=== PATIENT | male | born 1970 | race Caucasian/White ===

== ENCOUNTER 2016-08-21 08:00 | Inpatient (IN) | payer OTHER ==
--- NOTE | ~2016-08-21 | PN ---
Unit #: [id number] #: [id number] Patient: SEVERINO TOTH [id number] [facility] [address] [place] [address] [id number] MR#: [id number] NAME: SEVERINO TOTH. ROOM: 84 Age: 45 Sex: M Admission Date: 08/21/2016 : 1970 Attending Physician: Geoffrey Lopez M.D. Admitting Physician: Geoffrey Lopez M.D. Primary Care Physician: Primary Care Physician Estela MORTENSEN PROGRESS NOTES DATE 08/23/2016 DISCUSSION The patient's detox continues uneventfully and is active within the therapeutic milieu. He is expressing interest in residential chemical dependence treatment but his lack of insurance at this point may preclude this as a possibility though [facility] may certainly be a possibility for the patient. Dictated by... Geoffrey Lopez M.D. CB/jeff TD: 08/24/2016 02:53 JOB #: [id number] [facility] PROGRESS NOTES Page 1 of 1 X Geoffrey Lopez MD PROGRESS NOTE
--- NOTE | ~2016-08-21 | PA ---
Unit #: [id number] #: [id number] Patient: SEVERINO TOTH [id number] [place] [address] [id number] MR#: [id number] NAME: SEVERINO TOTH. ROOM: 81 Age: 45 Sex: M Admission Date: 08/21/2016 : 1970 Date of Assessment: 08/22/2016 Attending Physician: Geoffrey Lopez M.D. Admitting Physician: Geoffrey Lopez M.D. Primary Care Physician: Primary Care Physician No PSYCHIATRIC ASSESSMENT IDENTIFYING INFORMATION The patient is a 45-year-old white male admitted to the [facility] with recurrent abuse of alcohol. CHIEF COMPLAINT None given. INFORMANT Patient, reliability is fair. HISTORY OF PRESENT ILLNESS The patient is a 45-year-old white male who is well known to this physician from multiple previous admissions to this facility. He is readmitted with a recent relapse of alcohol use. He was last admitted to this facility in April of this year. The patient had a blood alcohol of 161 on admission at [facility] and scored a 19 on his CIWA. The patient is currently denying suicidal or homicidal ideation or psychotic features. He reports that he wishes to go to "[facility]" upon his discharge. For more complete history of present illness, please refer to previously dictated notes. PAST PSYCHIATRIC HISTORY Reviewed, no changes. PAST MEDICAL HISTORY Reviewed, no changes. MEDICATIONS Metoprolol, lisinopril, and Lasix. ALLERGIES Penicillin. FAMILY HISTORY Reviewed, no changes. SOCIAL HISTORY Reviewed, no changes. MENTAL STATUS EXAMINATION Examination at this time reveals the patient to be an obese white male appearing stated age. She is in no apparent physical distress at the time of examination. He is awake, alert, and oriented in all spheres. His Unit #: [id number] #: [id number] Patient: SEVERINO TOTH mood is mildly dysphoric, his affect constricted. Speech is generally well coherent. There are no gross deficits in memory or cognition noted. Intelligence is judged to be in the average range based on fund of knowledge. The patient is cooperative throughout the interview. He is currently reporting no suicidal or homicidal ideation or psychotic features. Judgment and insight appear to be intact. ASSETS AND LIABILITIES The patient's assets are to be assessed. Liabilities: Lack of resources. DIAGNOSTIC IMPRESSION 1. Alcohol use disorder. 2. Hypertension. TREATMENT PLAN The patient remains hospitalized for safety and stabilization. Routine detoxification protocol for alcohol has been initiated. The patient will participate in appropriate order of milieu activities. I will ask her director of social services to see him regarding post-discharge treatment options. ESTIMATED LENGTH OF STAY 3 to 5 days. Dictated by... Geoffrey Lopez M.D. HAIR/yumiko TD: 08/22/2016 14:21 JOB #: [id number] PSYCHIATRIC ASSESSMENT Page 1 of 1 X Geoffrey Lopez MD X PSYCHIATRIC ASSESSMENT
--- NOTE | ~2016-08-21 | PN ---
Unit #: [id number] #: [id number] Patient: SEVERINO TOTH [id number] [facility] [address] [place] [address] [id number] MR#: [id number] NAME: SEVERINO TOTH. ROOM: 84 Age: 45 Sex: M Admission Date: 08/21/2016 : 1970 Attending Physician: Geoffrey Lopez M.D. Admitting Physician: Geoffrey Lopez M.D. Primary Care Physician: Primary Care Physician Estela DIEGO NOTES DATE 08/25/2016 DISCUSSION The patient is a bit brighter today and is reporting reduction in suicidal ideation. His detox is essentially complete, and we are looking at discharge within the next couple of days. The patient reporting an interest in going to [facility] Dictated by... Geoffrey Lopez M.D. CB/bzg TD: 08/25/2016 14:31 JOB #: [id number] [facility] PROGRESS NOTES Page 1 of 1 X Geoffrey Lopez MD PROGRESS NOTE
--- NOTE | ~2016-08-21 | DS ---
Unit #: [id number] #: [id number] Patient: SEVERINO TOTH [id number] [facility] [address] [place] [address] [id number] I MR#: [id number] NAME: SEVERINO TOTH. ROOM: 84 Age: 45 Sex: M Admission Date: 08/21/2016 : 1970 Discharge Date: Attending Physician: Geoffrey Lopez M.D. Primary Care Physician: Primary Care Physician No DISCHARGE SUMMARY REASON FOR ADMISSION The patient is a 45-year-old , white male, admitted to the [facility] unit for alcohol detox. HOSPITAL COURSE The patient was admitted to the [facility] unit and placed on routine detoxification protocol for alcohol. His stay in the hospital was an uneventful one. His detox went smoothly and he was restarted on previously prescribed antihypertensive medications. By 08/26/2016, the patient requested for discharge to take place in the following day, so that he would go to [facility]" and as per his request, discharge was ordered. FINAL DIAGNOSES Alcohol use disorder and hypertension. DISPOSITION ON DISCHARGE The patient is discharged on the following medications: Lasix 40 mg daily for hypertension, Zestril 10 mg daily for hypertension, and Lopressor 25 mg b.i.d. for hypertension. DISCHARGE INSTRUCTIONS No dietary or physical restrictions were placed on the patient at the time of discharge. FOLLOWUP Followup will take place through the auspices of community mental health resources. PROGNOSIS The patient's prognosis is considered fair. Dictated by... Geoffrey Lopez M.D. CB/katt TD: 08/26/2016 13:34 JOB #: [id number] Unit #: [id number] #: [id number] Patient: SEVERINO TOTH DISCHARGE SUMMARY Page 1 of 1 X Geoffrey Lopez MD X DISCHARGE SUMMARY
--- NOTE | ~2016-08-21 | PN ---
Unit #: [id number] #: [id number] Patient: SEVERINO TOTH [id number] [facility] [address] [place] [address] [id number] I MR#: [id number] NAME: SEVERINO TOTH. ROOM: 84 Age: 45 Sex: M Admission Date: 08/21/2016 : 1970 Attending Physician: Geoffrey Lopez M.D. Admitting Physician: Geoffrey Lopez M.D. Primary Care Physician: Primary Care Physician Estela MORTENSEN PROGRESS NOTES DATE 08/24/2016 DISCUSSION The patient offers no new complaints. His detox continues uneventfully. He has discussed his insurance situation with appropriate individuals regarding his insurance status this morning and is more active within the therapeutic milieu. Dictated by... Geoffrey Lopez M.D. CB/jeff TD: 08/24/2016 12:08 JOB #: [id number] [facility] PROGRESS NOTES Page 1 of 1 X Geoffrey Lopez MD X PROGRESS NOTE
--- NOTE | ~2016-08-21 | HP ---
Unit #: [id number] #: [id number] Patient: SEVERINO TOTH [id number] [place] [address] [id number] I MR#: [id number] NAME: SEVERINO TOTH. ROOM: P181 Age: 45 Sex: M Admission Date: 08/21/2016 : 1970 Attending Physician: Geoffrey Lopez M.D. Admitting Physician: Geoffrey Lopez M.D. Primary Care Physician: Primary Care Physician No HISTORY AND PHYSICAL HISTORY OF PRESENT ILLNESS Severino is a 45-year-old male admitted on 08/21/2016 for detox for alcohol. PAST MEDICAL HISTORY Hypertension. PAST SURGICAL HISTORY None. ALLERGIES Penicillin. SOCIAL HISTORY No tobacco or illegal drug use. Does report drinking 16 to 20 beers daily. He is currently and living alone. FAMILY HISTORY Noncontributory. REVIEW OF SYSTEMS CONSTITUTIONAL: No fever or chills. HEENT: Denies any sore throat, ear pain or runny nose. CARDIOVASCULAR: Denies chest pain, irregular heart rhythm or palpitations. CHEST: Denies shortness of breath or cough. No hemoptysis. GASTROINTESTINAL: Denies nausea, vomiting, diarrhea or chronic constipation. ENDOCRINE: Denies history of increased thirst or urination. No recent significant weight loss or gain. GENITOURINARY: Denies dysuria, frequency, or hematuria. SKIN: Denies any rashes. HEMATOLOGIC: Denies history of increased bleeding or bruising. MUSCULOSKELETAL: Denies any hot, swollen joints. No generalized muscle pain. NEUROLOGIC: Denies problems with vision or speech. No frequent, severe headaches. No numbness, tingling or weakness in any extremities. Denies loss of bladder or bowel control. CURRENT MEDICATIONS 1. Metoprolol. 2. Lisinopril. 3. Lasix. Unit #: [id number] #: [id number] Patient: SEVERINO TOTH PHYSICAL EXAMINATION GENERAL: Alert, oriented, in no acute distress. VITAL SIGNS: Blood pressure 152/108, heart rate 120. HEIGHT: 5 feet 7. WEIGHT: 213 pounds. SKIN: Warm and dry without rash or lesion. HEENT: Normocephalic. TMs not viewed. Oral and nasal passages clear. Conjunctivae clear. PERRLA. EOMs intact. NECK: Supple without lymphadenopathy or thyromegaly. HEART: Regular rate and rhythm without murmur. LUNGS: Clear. ABDOMEN: Soft, nontender, without masses or hepatosplenomegaly. : Not done. EXTREMITIES: No evidence of cyanosis, clubbing or edema. Moves all without focal deficit. NEUROLOGICAL: Grossly within normal limits. Cranial Nerves: II: Visual aguilar are intact. III, IV AND : Extraocular movements are intact. Pupils are equal, round and reactive to light. V: Facial sensation is grossly normal. VII: Facial movements and expression are normal. VIII: Auditory acuity grossly intact. IX, X: Uvula is midline. Phonation is normal. XI: Patient shrugs shoulders and turns head normally. XII: Tongue protrudes in the midline. Sensory and Motor Function: Sensory and motor sensation is grossly normal. Motor: moves all extremities well. Coordination: Gait is normal. Deep Tendon Reflexes: Intact. IMPRESSION 1. Psychiatric admission. 2. Hypertension. RECOMMENDATIONS PSYCHIATRIC: Per psychiatrist. MEDICAL: No contraindications to participate in facility's activities. MEDICAL PROGNOSIS Good. MEDICAL CONDITION Stable. Dictated by... Donna Du/shital TD: 08/22/2016 15:49 JOB #: [id number] Unit #: [id number] #: [id number] Patient: SEVERINO TOTH HISTORY AND PHYSICAL Page 1 of 1 X MARK PERSON APRN HISTORY AND PHYSICAL
[~2016-08-21 08:00] MED LIST: UNKNOWN MEDS
== END 2016-08-27 08:22 | disposition home or self-care (01) | DRG 897 ==
LOC: P1E 15:45
PROC: HZ2ZZZZ Detoxification Services for Substance Abuse Treatment (ICD-10-PCS; principal; 2016-08-22)
DX: F10.10 Alcohol abuse, uncomplicated (principal); I10 Essential (primary) hypertension; Z88.0 Allergy status to penicillin

== ENCOUNTER 2016-08-30 07:00 | Inpatient (IN) | payer OTHER ==
--- NOTE | ~2016-08-30 | HP ---
Unit #: [id number] #: [id number] Patient: SEVERINO TOTH [id number] [place] [address] [id number] MR#: [id number] NAME: SEVERINO TOTH ROOM: P211 Age: 45 Sex: M Admission Date: 08/30/2016 : 1970 Attending Physician: Geoffrey Lopez M.D. Admitting Physician: Geoffrey Lopez M.D. Primary Care Physician: Primary Care Physician No HISTORY AND PHYSICAL Severino is a 45-year-old male admitted on 08/30/[address] [place] [address] for detox from alcohol. He had a recent admission on 08/21/2016 for the same. I reviewed the history and physical from that admission and there are no changes. Dictated by... Donna Du/jeff TD: 08/31/2016 02:53 JOB #: [id number] HISTORY AND PHYSICAL Page 1 of 1 X MARK PERSON APRN X HISTORY AND PHYSICAL
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
== END 2016-09-01 09:25 | disposition home or self-care (01) | DRG 897 ==
LOC: P2S 09:57
PROC: HZ2ZZZZ Detoxification Services for Substance Abuse Treatment (ICD-10-PCS; principal; 2016-08-30)
DX: F10.10 Alcohol abuse, uncomplicated (principal); I10 Essential (primary) hypertension; Z88.0 Allergy status to penicillin

== ENCOUNTER 2016-09-06 04:00 | Inpatient (IN) | payer OTHER ==
--- NOTE | ~2016-09-06 | PN ---
Unit #: [id number] #: [id number] Patient: SEVERINO TOTH [id number] [facility] [address] [place] [address] [id number] MR#: [id number] NAME: SEVERINO TOTH ROOM: [facility] Age: 45 Sex: M Admission Date: 09/06/2016 : 1970 Attending Physician: Geoffrey Lopez M.D. Admitting Physician: Geoffrey Lopez M.D. Primary Care Physician: Primary Care Physician Estela MORTENSEN PROGRESS NOTES DATE 09/09/2016 DISCUSSION The patient is abed resting comfortably today. He is scheduled for discharge to [facility] [place] on Wednesday. Otherwise, his participation within the therapeutic milieu remains characteristically poor. Dictated by... Geoffrey Lopez M.D. CB/shital TD: 09/09/2016 21:54 JOB #: [id number] [facility] PROGRESS NOTES Page 1 of 1 X Geoffrey Lopez MD X PROGRESS NOTE
--- NOTE | ~2016-09-06 | HP ---
Unit #: [id number] #: [id number] Patient: SEVERINO TOTH [id number] [facility] [place] [address] [id number] MR#: [id number] NAME: SEVERINO TOTH. ROOM: P182 Age: 45 Sex: M Admission Date: 09/06/2016 : 1970 Attending Physician: Geoffrey Lopez M.D. Admitting Physician: Geoffrey Lopez M.D. Primary Care Physician: Primary Care Physician No HISTORY AND PHYSICAL HISTORY OF PRESENT ILLNESS Severino is a 45 year old admitted to [facility] because of his continued abuse of alcohol. He has had numerous admissions to this facility. He was just discharged from this facility after treatment for the same. The patient was seen and H and P dated 08/22/2016 was reviewed. This is current. No changes. Please see H and P dated 08/22/2016. Dictated by... Rose Wesley P.A.-C. for Alysia Lawson/jeff TD: 09/08/2016 00:17 JOB #: [id number] HISTORY AND PHYSICAL Page 1 of X Rose Wesley HISTORY AND PHYSICAL
--- NOTE | ~2016-09-06 | DS ---
Unit #: [id number] #: [id number] Patient: SEVERINO TOTH [id number] [facility] [address] [place] [address] [id number] MR#: [id number] NAME: SEVERINO TOTH. ROOM: [facility] Age: 46 Sex: M Admission Date: 09/06/2016 : 1970 Discharge Date: 09/10/2016 Attending Physician: Geoffrey Lopez M.D. Primary Care Physician: Primary Care Physician No DISCHARGE SUMMARY REASON FOR ADMISSION The patient is a 45-year-old white male, admitted to the [facility] unit after reporting positive suicidal ideation and ongoing alcohol use. HOSPITAL COURSE The patient was admitted to the [facility] unit and placed on suicide precautions. A routine detoxification protocol for alcohol was initiated and the patient was continued on his previously prescribed antihypertensive medications. Arrangements were made for the patient to go to "[facility]" on 09/11/2016; however, on 09/10/2016, the patient informed this physician that he had no intention of going to that facility, accordingly discharge was ordered to take place on 09/10/2016. FINAL DIAGNOSES Alcohol use disorder; hypertension. DISPOSITION ON DISCHARGE The patient is discharged on the following medications: Lasix 40 mg daily for hypertension, Zestril 10 mg daily for hypertension, and Lopressor 25 mg b.i.d. for hypertension. DISCHARGE INSTRUCTIONS No dietary or physical restrictions were placed upon the patient at the time of discharge. PROGNOSIS His prognosis is considered guarded at best. Dictated by... Geoffrey Lopez M.D. CB/katt TD: 09/10/2016 18:06 JOB #: [id number] Unit #: [id number] #: [id number] Patient: SEVERINO TOTH DISCHARGE SUMMARY Page 1 of 1 X Geoffrey Lopez MD X DISCHARGE SUMMARY
--- NOTE | ~2016-09-06 | PN ---
Unit #: [id number] #: [id number] Patient: SEVERINO TOTH [id number] [facility] [address] [place] [address] [id number] MR#: [id number] NAME: SEVERINO TOTH ROOM: [facility] Age: 45 Sex: M Admission Date: 09/06/2016 : 1970 Attending Physician: Geoffrey Lopez M.D. Admitting Physician: Geoffrey Lopez M.D. Primary Care Physician: Primary Care Physician Estela MORTENSEN PROGRESS NOTES DATE 09/08/2016 DISCUSSION The patient offers no new complaints today. We will be sending the patient to [facility]" on Wednesday. Dictated by... Geoffrey Lopez M.D. CB/jeff TD: 09/08/2016 20:50 JOB #: [id number] [facility] PROGRESS NOTES Page 1 of 1 X Geoffrey Lopez MD X PROGRESS NOTE
--- NOTE | ~2016-09-06 | PA ---
Unit #: [id number] #: [id number] Patient: SEVERINO TOTH [id number] [facility] [address] [place] [address] [id number] MR#: [id number] NAME: SEVERINO TOTH. ROOM: P182 Age: 45 Sex: M Admission Date: 09/06/2016 : 1970 Date of Assessment: 09/07/2016 Attending Physician: Geoffrey Lopez M.D. Admitting Physician: Geoffrey Lopez M.D. Primary Care Physician: Primary Care Physician No PSYCHIATRIC ASSESSMENT IDENTIFYING INFORMATION The patient is a 45-year-old white male just discharged from this facility on 09/01/2016. He returned intoxicated and voicing positive suicidal ideation. CHIEF COMPLAINT None given. INFORMANT The patient, patient's reliability is fair. HISTORY OF PRESENT ILLNESS The patient is a 45-year-old white male just discharged from this facility on 09/01/2016. The patient began drinking almost immediately thereafter now reports that "[place] ain't the place for me." He was reporting positive suicidal ideation when evaluated but today is denying suicidal ideation and expresses future orientation citing wish to go to "[facility]" in [place], [place]. He reports that he has been noncompliant with his prescribed antihypertensive medications and his blood pressure was not (1)____ quite elevated on admission. His blood alcohol on admission at [facility] was .259. For more complete history of present illness please refer to multiple previous dictated notes. PAST PSYCHIATRIC HISTORY Reviewed no changes. PAST MEDICAL HISTORY Reviewed no changes. MEDICATIONS 1. Lasix 2. Zestril 3. Lopressor ALLERGIES Penicillin FAMILY HISTORY Reviewed no changes. SOCIAL HISTORY Reviewed no changes. Unit #: [id number] #: [id number] Patient: SEVERINO TOTH MENTAL STATUS EXAMINATION At this time reveals the patient to be a well-developed, well-nourished white male, appearing his stated age. He is in no apparent physical distress at the time of examination. He is awake, alert, and oriented in all spheres. His mood is mildly dysphoric. His affect congruent. Speech is generally relevant and coherent. There are no gross deficits in memory or cognition noted. Intelligence is judged to be in the average range based on fund of knowledge. The patient is cooperative throughout the interview. He is currently denying suicidal or homicidal ideation or psychotic features. Judgment and insight appear to be intact. ASSETS AND LIABILITIES ASSETS: To be assessed. LIABILITIES: Poor compliance of treatment. DIAGNOSTIC IMPRESSION Alcohol use disorder, hypertension, treatment plan PSYCHIATRIC PLAN/TREATMENT GOALS The patient remains hospitalized for safety and stabilization. A routine detoxification protocol for alcohol has been initiated and his antihypertensive medications have been restarted. The patient has begun contact with "[facility]" and it is our hope that he will be able to be transferred there later this week for continued residential chemical dependence treatment. Dictated by... Geoffrey Lopez M.D. CB/jeff TD: 09/07/2016 23:16 JOB #: [id number] PSYCHIATRIC ASSESSMENT Page 1 of 1 X Geoffrey Lopze MD X PSYCHIATRIC ASSESSMENT
== END 2016-09-10 15:30 | DRG 897 ==
LOC: P1E 18:11
PROC: HZ2ZZZZ Detoxification Services for Substance Abuse Treatment (ICD-10-PCS; principal; 2016-09-06)
DX: F10.20 Alcohol dependence, uncomplicated (principal); I10 Essential (primary) hypertension

== ENCOUNTER 2016-09-26 14:00 | Inpatient (IN) | payer OTHER ==
--- NOTE | ~2016-09-26 | PN ---
Unit #: [id number] #: [id number] Patient: SEVERINO TOTH [id number] [facility] [address] [place] [address] [id number] MR#: [id number] NAME: SEVERINO TOTH ROOM: P210 Age: 46 Sex: M Admission Date: 09/26/2016 : 1970 Attending Physician: Geoffrey Lopez M.D. Admitting Physician: Geoffrey Lopez M.D. Primary Care Physician: Primary Care Physician Estela MORTENSEN PROGRESS NOTES DATE 09/30/2016 DISCUSSION The patient offers no new complaints today. He states that [facility] is probably a "no go" secondary to unavailability of beds. We will plan to discharge the patient tomorrow with completion of detox. Dictated by... Geoffrey Lopez M.D. CB/shital TD: 09/30/2016 16:04 JOB #: [id number] [facility] PROGRESS NOTES Page 1 of 1 X Geoffrey Lopez MD PROGRESS NOTE
--- NOTE | ~2016-09-26 | PA ---
Unit #: [id number] #: [id number] Patient: SEVERINO TABARES [id number] [facility] [address] [place] [address] [id number] I MR#: [id number] NAME: SEVERINO TABARES. ROOM: P182 Age: 46 Sex: M Admission Date: 09/26/2016 : 1970 Date of Assessment: Attending Physician: Geoffrey Lopez M.D. Admitting Physician: Geoffrey Lopez M.D. Primary Care Physician: Primary Care Physician No PSYCHIATRIC ASSESSMENT DATE OF SERVICE 09/26/2016. IDENTIFYING DATA Mr. Tabares is a 46-year-old, , white male, who is a resident of [place], [place] and was brought to the hospital by Crisis Intervention Team of the [facility] Police Department. CHIEF COMPLAINT "I'm fed up. I don't have a draft on this." HISTORY OF PRESENT ILLNESS Mr. Tabares is a 46-year-old white male with history of substance abuse and mood disorder, who was brought to the hospital by a local police as the patient had a blood alcohol level of 0.297 upon presentation and was seemed to be extremely depressed, anxious, and making suicidal statements, stating "I walk around the corner, I can get drunk and going to be mad at me and I've a serious problem and I need help." [facility] report indicated the patient was picked up after they received a call stating the patient is going to kill himself. The patient does endorse significant depression, anxiety, irritability, feelings of hopelessness and helplessness and suicidal ideations, and was seemed to be significant threat to himself, and as such, recommendation for inpatient level of care for safety and stabilization was made, and the patient was transferred to us. SUBSTANCE ABUSE HISTORY The patient reports extensive history of substance abuse and dependence, stating that he has been drinking since he was 20 years old and has been drinking 18 or more beers on a daily basis, and denies any other substance abuse. PAST PSYCHIATRIC HISTORY The patient has had a [facility] and [facility] addition to being at [facility], and has been diagnosed and treated for alcohol dependence and mood disorder, and review of the medical records indicate that he is noncompliant with treatment recommendations on an outpatient basis. PAST MEDICAL HISTORY Hypertension and congestive heart failure. Unit #: [id number] #: [id number] Patient: SEVERINO TABARES ALLERGIES No known medication allergies. CURRENT MEDICATIONS None. PERSONAL AND SOCIAL HISTORY A 45-year-old white male, who reports that he is single, unemployed, and essentially homeless and has poor social support system. MENTAL STATUS EXAMINATION Middle-aged white male, who was casually dressed with fair personal hygiene, appears to be in no acute distress or discomfort. He was awake and alert on interaction with intact orientation to time, place, and person. His mood was anxious and depressed with a congruent affect. His speech was slow and restricted in content. His thought processes were disorganized with some looseness of associations and flight of ideas. His insight and judgment remain significantly impaired. DIAGNOSTIC IMPRESSION Psychiatric: Alcohol dependence, moderate, in acute withdrawals; alcohol-induced mood disorder. Medical: Hypertension and congestive heart failure. Stressors: Moderate psychosocial stressors. TREATMENT PLAN 1. The patient has presented with history of substance abuse and mood disorder and has been decompensating and will need inpatient hospitalization for safety and stabilization. We will start him back on his home medications. We will adjust the medications and monitor response. 2. Supportive therapy was provided to the patient. ESTIMATED LENGTH OF STAY 5 to 7 days. ABILITY TO HELP SELF Limited. WILLINGNESS TO HELP SELF The patient appears to be willing to help self. STRENGTHS 1. Communicative. 2. Cooperative. PROBLEMS 1. Chronic dysphoric symptoms. 2. Chronic chemical dependency. 3. Poor social support system. DISCHARGE CRITERIA This will be contingent upon the patient's ability to go through detox without having any significant withdrawal symptoms as well as his ability to stay safe to himself, particularly after discharge from the hospital. Dictated by... Esther Virk M.D. Unit #: [id number] #: [id number] Patient: SEVERINO TABARES IAA/modl TD: 09/27/2016 15:24 JOB #: [id number] PSYCHIATRIC ASSESSMENT Page 1 of 1 X Esther Virk MD PSYCHIATRIC ASSESSMENT
--- NOTE | ~2016-09-26 | PN ---
Unit #: [id number] #: [id number] Patient: SEVERINO TABARES [id number] [facility] [address] [place] [address] [id number] MR#: [id number] NAME: SEVERINO TABARES. ROOM: 82 Age: 46 Sex: M Admission Date: 09/26/2016 : 1970 Attending Physician: Geoffrey Lopez M.D. Admitting Physician: Geoffrey Lopez M.D. Primary Care Physician: Primary Care Physician Estela DIEGO NOTES DATE September 27, 2016 DISCUSSION Mr. Tabares is a 46-year-old white male, who was seen today and chart was reviewed and the case was discussed with the staff. He was seen to be anxious, withdrawn, and seclusive to himself. Meanwhile, he has been cooperative with the treatment recommendations and he has been taking the medications and tolerating them fairly well. MENTAL STATUS EXAMINATION Middle-aged white male, who was casually dressed with fair personal hygiene and appears to be in no acute distress or discomfort. He was awake and alert with intact orientation. His mood is anxious with a congruent affect. He reports having suicidal ideations but denies any intent or plan. His insight and judgment remain significantly impaired. TREATMENT PLAN 1. We will continue him on his current medications and treatment protocol, and will monitor his response to the medications, and make further adjustments as needed. 2. We will continue to followup. Dictated by... Alysia Cameron/kings TD: 09/28/2016 07:17 JOB #: [id number] Unit #: [id number] #: [id number] Patient: SEVERINO TABARES [facility] PROGRESS NOTES Page 1 of 1 X Esther Virk MD X PROGRESS NOTE
--- NOTE | ~2016-09-26 | PN ---
Unit #: [id number] #: [id number] Patient: SEVERINO TOTH [id number] [facility] [address] [place] [address] [id number] I MR#: [id number] NAME: SEVERINO TOTH. ROOM: 82 Age: 46 Sex: M Admission Date: 09/26/2016 : 1970 Attending Physician: Geoffrey Lopez M.D. Admitting Physician: Geoffrey Lopez M.D. Primary Care Physician: Primary Care Physician Estela MORTENSEN PROGRESS NOTES DATE 09/29/2016 DISCUSSION Surprisingly, the patient is active within the therapeutic milieu and attending groups today. He states that he has been in contact with [facility] in [place], [place] and hopes to be accepted at that facility in the next couple of days. His detox continues uneventfully. Dictated by... Geoffrey Lopez M.D. CB/kings TD: 09/29/2016 13:54 JOB #: [id number] [facility] PROGRESS NOTES Page 1 of 1 X Geoffrey Lopez MD PROGRESS NOTE
--- NOTE | ~2016-09-26 | HP ---
Unit #: [id number] #: [id number] Patient: SEVERINO TOTH [id number] [place] [address] [id number] I MR#: [id number] NAME: SEVERINO TOTH. ROOM: [facility] Age: 46 Sex: M Admission Date: 09/26/2016 : 1970 Attending Physician: Geoffrey Lopez M.D. Admitting Physician: Geoffrey Lopez M.D. Primary Care Physician: Primary Care Physician No HISTORY AND PHYSICAL HISTORY OF PRESENT ILLNESS The patient is a 46-year-old male who states he is here because he is drinking alcohol to excess. PAST MEDICAL HISTORY Significant for hypertension. PAST SURGICAL HISTORY None. SOCIAL HISTORY Positive for smoking and alcohol. ALLERGIES None. FAMILY HISTORY Noncontributory. REVIEW OF SYSTEMS CONSTITUTIONAL: No fever or chills. HEENT: Denies any sore throat, ear pain or runny nose. CARDIOVASCULAR: Denies chest pain, irregular heart rhythm or palpitations. CHEST: Denies shortness of breath or cough. No hemoptysis. GASTROINTESTINAL: Denies nausea, vomiting, diarrhea or chronic constipation. ENDOCRINE: Denies history of increased thirst or urination. No recent significant weight loss or gain. GENITOURINARY: Denies dysuria, frequency, or hematuria. SKIN: Denies any rashes. HEMATOLOGIC: Denies history of increased bleeding or bruising. MUSCULOSKELETAL: Denies any hot, swollen joints. No generalized muscle pain. NEUROLOGIC: Denies problems with vision or speech. No frequent, severe headaches. No numbness, tingling or weakness in any extremities. Denies loss of bladder or bowel control. CURRENT MEDICATIONS None. PHYSICAL EXAMINATION Unit #: [id number] #: [id number] Patient: SEVERINO TOTH GENERAL: Alert, oriented in no acute distress. VITAL SIGNS: Heart rate 93, respirations 16, blood pressure 143/101. HEIGHT: 5 feet 8 inches WEIGHT: 220 pounds SKIN: Warm and dry without rash or lesion. Tattoo bilateral upper arms. Trace right ankle swelling. HEENT: Normocephalic. TMs not viewed. Oral and nasal passages clear. Conjunctivae clear. PERRLA. EOMs intact. NECK: Supple without lymphadenopathy or thyromegaly. HEART: Regular rate and rhythm without murmur. LUNGS: Clear. ABDOMEN: Soft, nontender, without masses or hepatosplenomegaly. : Not done. EXTREMITIES: No evidence of cyanosis, clubbing or edema. Moves all without focal deficit. NEUROLOGICAL: Grossly within normal limits. Cranial Nerves: II: Visual aguilar are intact. III, IV AND : Extraocular movements are intact. Pupils are equal, round and reactive to light. V: Facial sensation is grossly normal. VII: Facial movements and expression are normal. VIII: Auditory acuity grossly intact. IX, X: Uvula is midline. Phonation is normal. XI: Patient shrugs shoulders and turns head normally. XII: Tongue protrudes in the midline. Sensory and Motor Function: Sensory and motor sensation is grossly normal. Motor: moves all extremities well. Coordination: Gait is normal. Deep Tendon Reflexes: Intact. IMPRESSION Psychiatric admission. RECOMMENDATIONS Psychiatric, per psychiatrist. MEDICAL: I see no contraindications to participating in facility's activities. MEDICAL PROGNOSIS Good. Dictated by... Donna Rosas/jeff TD: 09/28/2016 02:29 JOB #: [id number] Unit #: [id number] #: [id number] Patient: SEVERINO TOTH HISTORY AND PHYSICAL Page 1 of 1 X Gali James APR X HISTORY AND PHYSICAL
--- NOTE | ~2016-09-26 | PN ---
Unit #: [id number] #: [id number] Patient: SEVERINO TOTH [id number] [facility] [address] [place] [address] [id number] I MR#: [id number] NAME: SEVERINO TOTH ROOM: [facility] Age: 46 Sex: M Admission Date: 09/26/2016 : 1970 Attending Physician: Geoffrey Lopez M.D. Admitting Physician: Geoffrey Lopez M.D. Primary Care Physician: Primary Care Physician Estela MORTENSEN PROGRESS NOTES DATE 09/28/2016 DISCUSSION The patient exhibits little in the way of signs or symptoms of withdrawn, he states that he is hoping to go to "[facility]" upon his discharge from this facility and offers no other complaints. Dictated by... Geoffrey Lopez M.D. CB/kings TD: 09/28/2016 12:56 JOB #: [id number] [facility] PROGRESS NOTES Page 1 of 1 X Geoffrey Lopez MD X PROGRESS NOTE
--- NOTE | ~2016-09-26 | DS ---
Unit #: [id number] #: [id number] Patient: SEVERINO TOTH [id number] [facility] [address] [place] [address] [id number] MR#: [id number] NAME: SEVERINO TOTH. ROOM: [facility] Age: 46 Sex: M Admission Date: 09/26/2016 : 1970 Discharge Date: 10/01/2016 Attending Physician: Geoffrey Lopez M.D. Primary Care Physician: Primary Care Physician No DISCHARGE SUMMARY REASON FOR ADMISSION The patient is a 46-year-old white male admitted to the [address] [place] [address] for alcohol detox. HOSPITAL COURSE The patient is admitted to the [address] [place] [address] and placed on a routine detoxification protocol for alcohol. His home antihypertensive medications were continued. The patient made efforts to obtain placement at [facility] but was unsuccessfully in doing so. By 10/01 his detox was complete and discharge was ordered. DISCHARGE DIAGNOSES 1. Alcohol use disorder. 2. Hypertension. DISPOSITION ON DISCHARGE The patient is discharged on the following medications: 1. Lopressor 25 mg twice daily for hypertension. 2. Zestril 10 mg once daily for hypertension. 3. Lasix 40 mg daily for hypertension. DIET AND ACTIVITY No dietary or physical restrictions were placed upon the patient at the time of discharge. Followup to take place through the auspices of community mental resources. The patient's prognosis remains guarded. Dictated by... Geoffrey Lopez M.D. CB/jeff TD: 10/02/2016 00:05 JOB #: [id number] Unit #: [id number] #: [id number] Patient: SEVERINO TOTH DISCHARGE SUMMARY Page 1 of 1 X Geoffrey Lopez MD X DISCHARGE SUMMARY
--- NOTE | ~2016-09-26 | PA ---
Unit #: [id number] #: [id number] Patient: SEVERINO TOTH [id number] [facility] [address] [place] [address] [id number] I MR#: [id number] NAME: SEVERINO TOTH. ROOM: [facility] Age: 46 Sex: M Admission Date: 09/26/2016 : 1970 Date of Assessment: 09/27/2016 Attending Physician: Geoffrey Lopez M.D. Admitting Physician: Geoffrey Lopez M.D. Primary Care Physician: Primary Care Physician No PSYCHIATRIC ASSESSMENT IDENTIFYING INFORMATION The patient is a 46-year-old white male admitted to the [facility] unit after he presented to this facility reporting ongoing suicidal ideation and abuse of alcohol. CHIEF COMPLAINT None given. INFORMANT The patient, patient's reliability is fair. HISTORY OF PRESENT ILLNESS The patient is a 46-year-old white male brought to this facility by [facility] yesterday. The patient was reporting ongoing abuse of alcohol and because of this was reporting positive thoughts of suicide without specific plan. The patient is a "frequent " at this facility last discharged on 09/10/2016. At that time the patient stated that he was going to go to "[facility]" but began drinking almost immediately thereafter. He denies suicidal ideation when seen today and is reporting a wish to go to "[facility]" upon his discharge from this facility. PAST PSYCHIATRIC HISTORY As above. PAST MEDICAL HISTORY Reviewed no changes. MEDICATIONS The patient is on several antihypertensive medications but these do not appear to be have been restarted. ALLERGIES None reported. FAMILY HISTORY Reviewed no changes. SOCIAL HISTORY Reviewed no changes. MENTAL STATUS EXAMINATION At this time reveals the patient to be a (2) male appearing his stated age. He is in no apparent physical distress at the time of Unit #: [id number] #: [id number] Patient: SEVERINO TOTH examination. He is awake, alert, and oriented in all spheres. His mood is mildly dysphoric. His affect is constricted. Speech is generally relevant and coherent. There are no gross deficits in memory or cognition noted. Intelligence is judged to be in the average range based on fund of knowledge. The patient is cooperative throughout the interview. He is currently denying suicidal or homicidal ideation and denies any psychotic symptoms. His judgment and insight appear to be at baseline. ASSETS AND LIABILITIES ASSETS: To be assessed. LIABILITIES: Lack of resources. DIAGNOSTIC IMPRESSION Alcohol use disorder, hypertension. PSYCHIATRIC PLAN/TREATMENT GOALS The patient remains hospitalized for safety and stabilization. A routine detoxification protocol for alcohol has been initiated. The patient will be firmly confronted today regarding his history of poor compliance with treatment within the therapeutic milieu. ESTIMATED LENGTH OF STAY IN THE HOSPITAL Two to three days. Dictated by... Geoffrey Lopez M.D. HAIR/jeff TD: 09/27/2016 23:24 JOB #: [id number] PSYCHIATRIC ASSESSMENT Page 1 of 1 X Geoffrey Lopez MD X PSYCHIATRIC ASSESSMENT
[2016-09-28 12:25] LABS: BASOPHIL% 0.7 % (0-2.5); EOSINOPHIL# 0.1 X10e3 (0-0.7); HEMATOCRIT 39.9 % (38.0-50.0); HEMOGLOBIN 13.1 gm/dL (13.0-16.0); LYMPHOCYTE# 1.1 X10e3 (1.0-3.5); LYMPHOCYTE% 20.1 % (17.0-45.0); MEAN CELL VOLUME 91.6 FL (83-96); MEAN CORPUSCULAR HEMOGLOBIN 30.1 PG (28-34); MEAN CORPUSCULAR HGB CONC 32.8 g/dL (30-36); MEAN PLATELET VOLUME 7.9 FL (6.5-11.5); MONOCYTE# 0.4 X10e3 (0-1.0); MONOCYTE% 7.4 % (3.0-12.0); NEUTROPHIL# 3.8 X10e3 (1.5-7.1); NEUTROPHIL% 69.8 % (40-75); PLATELET COUNT 185 X10e3 (140-420); RED BLOOD COUNT 4.35 X10e (3.90-5.60); RED CELL DISTRIBUTION WIDTH 15.6 % (11.0-15.5); WHITE BLOOD COUNT 5.5 X10e3 (4.0-10.5)
[2016-09-28 12:26] LABS: DIFF IND NO
[2016-09-28 12:33] LABS: BILIRUBIN,TOTAL 0.7 mg/dL (0.2-2.0); BUN/CREATININE RATIO 22.85; CALCIUM SERUM 8.4 mg/dL (8.4-10.2); CREATININE SERUM 0.7 mg/dL (0.6-1.4); POTASSIUM 3.8 mmol/L (3.5-5.1); PROTEIN TOTAL SERUM 7.2 g/dL (6.0-8.3)
== END 2016-10-01 14:35 | disposition home or self-care (01) | DRG 897 ==
LOC: P1E 14:23 → POF 09-29 22:12 → P2S 09-29 22:13
PROVIDERS: Specialist
PROC: HZ2ZZZZ Detoxification Services for Substance Abuse Treatment (ICD-10-PCS; principal; 2016-09-26)
DX: F10.239 Alcohol dependence with withdrawal, unspecified (principal); I50.9 Heart failure, unspecified; F17.210 Nicotine dependence, cigarettes, uncomplicated; F10.24 Alcohol dependence with alcohol-induced mood disorder
CPT/HCPCS: 80053; 85025; 86592

== ENCOUNTER 2016-10-06 04:00 | Inpatient (IN) | payer OTHER ==
--- NOTE | ~2016-10-06 | PN ---
Unit #: [id number] #: [id number] Patient: SEVERINO TOTH [id number] [facility] [address] [place] [address] [id number] MR#: [id number] NAME: SEVERINO TOTH. ROOM: 80 Age: 46 Sex: M Admission Date: 10/06/2016 : 1970 Attending Physician: Geoffrey Lopez M.D. Admitting Physician: Geoffrey Lopez M.D. Primary Care Physician: Generic Doctor Not In System [facility] PROGRESS NOTES DATE 10/07/2016 DISCUSSION Patients exhibits little in the way or signs or symptoms of withdrawal today. He again is claiming to be seeking admission to a residential treatment facility however this physician has strong doubts whether the patient has any intent on complying with this given his previous behavior at this facility. Dictated by... Geoffrey Lopez M.D. CB/jeff TD: 10/07/2016 21:48 JOB #: [id number] [facility] PROGRESS NOTES Page 1 of 1 X Geoffrey Lopez MD PROGRESS NOTE
--- NOTE | ~2016-10-06 | PA ---
Unit #: [id number] #: [id number] Patient: SEVERINO TOTH [id number] [facility] [address] [place] [address] [id number] I MR#: [id number] NAME: SEVERINO TOTH. ROOM: 80 Age: 46 Sex: M Admission Date: 10/06/2016 : 1970 Date of Assessment: 10/06/2016 Attending Physician: Geoffrey Lopez M.D. Admitting Physician: Geoffrey Lopez M.D. Primary Care Physician: Generic Doctor Not In System PSYCHIATRIC ASSESSMENT IDENTIFYING INFORMATION The patient is a 46-year-old white male admitted to the [facility] unit after presenting to [facility] claiming to be suicidal. CHIEF COMPLAINT None given. INFORMANT Chart, the patient could not be aroused for interview. HISTORY OF PRESENT ILLNESS The patient is a 46-year-old white male well known to this physician. He was just discharged from this facility on 10/01/2016 and began drinking immediately upon his discharge. He presented to [facility] claiming to be "fed up" and reporting positive suicidal ideation. His blood alcohol on admission was 0.293. When seen today the patient is resting comfortably and cannot be aroused for interview For more complete history of present illness please refer to multiple previous dictated notes. PAST PSYCHIATRIC HISTORY Reviewed, no changes. PAST MEDICAL HISTORY Reviewed, no changes. MEDICATIONS 1. Lasix 2. Lisinopril 3. Lopressor ALLERGIES Penicillin FAMILY HISTORY Reviewed, no changes. SOCIAL HISTORY Reviewed, no changes. MENTAL STATUS EXAMINATION At this time reveals the patient to be a soundly sleeping obese white male appearing his stated age. He is in no apparent physical distress at the time of examination. As noted previously the patient cannot be aroused Unit #: [id number] #: [id number] Patient: SEVERINO TOTH for further interview. ASSETS AND LIABILITIES ASSETS: To be assessed. LIABILITIES: Lack of resources, ongoing substance use. DIAGNOSTIC IMPRESSION Alcohol use disorder, hypertension. PSYCHIATRIC PLAN/TREATMENT GOALS The patient remains hospitalized for safety and stabilization. A routine detoxification protocol for alcohol has been initiated and the antihypertensive medications had been restarted. ESTIMATED LENGTH OF STAY IN THE HOSPITAL Three to five days. Dictated by... Geoffrey Lopez M.D. HAIR/jeff TD: 10/07/2016 03:55 JOB #: [id number] PSYCHIATRIC ASSESSMENT Page 1 of 1 X Geoffrey Lopez MD PSYCHIATRIC ASSESSMENT
--- NOTE | ~2016-10-06 | HP ---
Unit #: [id number] #: [id number] Patient: SEVERINO TOTH [id number] [place] [address] [id number] MR#: [id number] NAME: SEVERINO TOTH. ROOM: P180 Age: 46 Sex: M Admission Date: 10/06/2016 : 1970 Attending Physician: Geoffrey Lopez M.D. Admitting Physician: Geoffrey Lopez M.D. Primary Care Physician: Generic Doctor Not In System HISTORY AND PHYSICAL HISTORY OF PRESENT ILLNESS Severino is a 46 year old admitted to [facility] because of his continued abuse of alcohol. He has had numerous admissions to this facility. He was just discharged from this facility after treatment for the same. The patient was seen and H and P dated 09/27/2016 was reviewed. This is current. No changes. Please see H and P dated 09/27/2016. Dictated by... Rose Wesley P.A.-C. for Alysia Lawson/jeff TD: 10/07/2016 05:03 JOB #: [id number] HISTORY AND PHYSICAL Page 1 of X Rose Wesley HISTORY AND PHYSICAL
--- NOTE | ~2016-10-06 | PN ---
Unit #: [id number] #: [id number] Patient: SEVERINO TOTH [id number] [facility] [address] [place] [address] [id number] MR#: [id number] NAME: SEVERINO TOTH. ROOM: P180 Age: 46 Sex: M Admission Date: 10/06/2016 : 1970 Attending Physician: Geoffrey Lopez M.D. Admitting Physician: Geoffrey Lopez M.D. Primary Care Physician: Britton Doctor Not In System [facility] PROGRESS NOTES DATE 10/08/2016 DISCUSSION The patient is active within the therapeutic milieu and his detox continues uneventfully. Unfortunately, we have learned that the patient's insurance may terminate on 10/26/2016 and if it does, he will not be able to go to a residential treatment facility. We will work on this but I have told the patient in any case to expect a.m. discharge. Dictated by... Geoffrey Lopez M.D. HAIR/shital TD: 10/08/2016 15:55 JOB #: [id number] [facility] PROGRESS NOTES Page 1 of 1 X Geoffrey Lopez MD X PROGRESS NOTE
== END 2016-10-09 09:15 | DRG 897 ==
LOC: P1E 04:00
PROC: HZ2ZZZZ Detoxification Services for Substance Abuse Treatment (ICD-10-PCS; principal; 2016-10-06)
DX: F10.20 Alcohol dependence, uncomplicated (principal); I10 Essential (primary) hypertension; F17.210 Nicotine dependence, cigarettes, uncomplicated

== ENCOUNTER 2016-11-13 01:00 | Inpatient (IN) | payer OTHER ==
[~2016-11-13] VITALS: Ht 170.2 cm; Wt 102.1 kg
--- NOTE | ~2016-11-13 | PN ---
Unit #: [id number] #: [id number] Patient: SEVERINO TOTH [id number] [facility] [address] [place] [address] [id number] I MR#: [id number] NAME: SEVERINO TOTH. ROOM: 76 Age: 46 Sex: M Admission Date: 11/13/2016 : 1970 Attending Physician: Geoffrey Lopez M.D. Admitting Physician: Geoffrey Lopez M.D. Primary Care Physician: Generic Doctor Not In System [facility] PROGRESS NOTES DATE 11/15/2016 DISCUSSION The patient is in somewhat brighter spirits today and is more active within the therapeutic milieu. [facility] is [facility]. Dictated by... Geoffrey Lopez M.D. CB/jeff TD: 11/15/2016 23:42 JOB #: [id number] [facility] PROGRESS NOTES Page 1 of 1 X Geoffrey Lopez MD X PROGRESS NOTE
--- NOTE | ~2016-11-13 | HP ---
Unit #: [id number] #: [id number] Patient: SEVERINO TOTH [id number] [place] [address] [id number] MR#: [id number] NAME: SEVERINO TOTH. ROOM: P176 Age: 46 Sex: M Admission Date: 11/13/2016 : 1970 Attending Physician: Geoffrey Lopez M.D. Admitting Physician: Geoffrey Lopez M.D. Primary Care Physician: Britton Doctor Not In System HISTORY AND PHYSICAL HISTORY OF PRESENT ILLNESS Sveerino is a 46 year old admitted to [facility] because of his continued abuse of alcohol. PAST MEDICAL HISTORY 1. Long history of alcohol abuse. 2. High blood pressure. 3. Obesity. PAST SURGICAL HISTORY Nothing reported. ALLERGIES No known drug allergies. SOCIAL HISTORY He does not smoke. Drinks at least a case of beer on a daily basis. Denies illicit drug use. FAMILY HISTORY Medically noncontributory. REVIEW OF SYSTEMS CONSTITUTIONAL: No fever or chills. HEENT: Denies any sore throat, ear pain or runny nose. CARDIOVASCULAR: Denies chest pain, irregular heart rhythm or palpitations. CHEST: Denies shortness of breath or cough. No hemoptysis. GASTROINTESTINAL: Denies nausea, vomiting, diarrhea or chronic constipation. ENDOCRINE: Denies history of increased thirst or urination. No recent significant weight loss or gain. GENITOURINARY: Denies dysuria, frequency, or hematuria. SKIN: Denies any rashes. HEMATOLOGIC: Denies history of increased bleeding or bruising. MUSCULOSKELETAL: Denies any hot, swollen joints. No generalized muscle pain. NEUROLOGIC: Denies problems with vision or speech. No frequent, severe headaches. No numbness, tingling or weakness in any extremities. Denies loss of bladder or bowel control. CURRENT MEDICATIONS 1. Detox protocol. 2. Lopressor 25 mg daily. Unit #: [id number] #: [id number] Patient: SEVERINO TOHT 3. Zestril 10 mg daily. 4. Lasix 40 mg daily. PHYSICAL EXAMINATION GENERAL: Alert, obese, in no apparent distress. VITAL SIGNS: Blood pressure 144/88, heart rate 80, respirations 16, temperature 98.6. WEIGHT: 225. HEIGHT: 5 feet 7 inches. SKIN: Warm and dry without rash or lesion. HEENT: Normocephalic. TMs not viewed. Oral and nasal passages clear. Conjunctivae clear. PERRLA. EOMs intact. NECK: Supple without lymphadenopathy or thyromegaly. HEART: Regular rate and rhythm without murmur. LUNGS: Clear. ABDOMEN: Soft, nontender. : Not done. EXTREMITIES: No evidence of cyanosis, clubbing or edema. Moves all without focal deficit. NEUROLOGICAL: Grossly within normal limits. Cranial Nerves: II: Visual aguilar are intact. III, IV AND : Extraocular movements are intact. Pupils are equal, round and reactive to light. V: Facial sensation is grossly normal. VII: Facial movements and expression are normal. VIII: Auditory acuity grossly intact. IX, X: Uvula is midline. Phonation is normal. XI: Patient shrugs shoulders and turns head normally. XII: Tongue protrudes in the midline. Sensory and Motor Function: Sensory and motor sensation is grossly normal. Motor: moves all extremities well. Coordination: Gait is normal. Deep Tendon Reflexes: Intact. IMPRESSION Psychiatric admission. RECOMMENDATIONS PSYCHIATRIC: Per psychiatrist. MEDICAL: See no contraindication to participate in facility's activities. MEDICAL PROGNOSIS Good. MEDICAL CONDITION Stable. Dictated by... Rose Wesley PRosalesARosales-Jonelle. for Alysia Lawson/shital TD: 11/14/2016 18:40 JOB #: [id number] Unit #: [id number] #: [id number] Patient: SEVERINO TOTH HISTORY AND PHYSICAL Page 1 of 1 X Rose Wesley HISTORY AND PHYSICAL
--- NOTE | ~2016-11-13 | DS ---
Unit #: [id number] #: [id number] Patient: SEVERINO TOTH [id number] [facility] [address] [place] [address] [id number] MR#: [id number] NAME: SEVERINO TOTH. ROOM: [facility] Age: 46 Sex: M Admission Date: 11/13/2016 : 1970 Discharge Date: 11/17/2016 Attending Physician: Geoffrey Lopez M.D. Primary Care Physician: Generic Doctor Not In System DISCHARGE SUMMARY ANTICIPATED DATE OF DISCHARGE 11/17/2016. HOSPITAL COURSE The patient was admitted to the [facility] unit and continued on previously prescribed antihypertensive medications. His stay in the hospital was a brief and uneventful one. His behavior was somewhat more appropriate during this stay in the hospital and he did participate more actively. By 11/17/2016, the patient reported a wish to [facility]. Discharge was ordered. FINAL DIAGNOSES Alcohol use disorder, and hypertension. DISPOSITION ON DISCHARGE The patient is discharged on the following medications; Lasix 40 mg daily for hypertension, Zestril 10 mg daily for hypertension, Lopressor 25 mg daily for hypertension. DISCHARGE INSTRUCTIONS No dietary or physical restrictions were placed on the patient at the time of discharge. FOLLOWUP Followup will take place through the auspices of "community mental health resources." PROGNOSIS The patient's prognosis remains guarded. Dictated by... Geoffrey Lopez M.D. CB/katt TD: 11/17/2016 02:49 JOB #: [id number] Unit #: [id number] #: [id number] Patient: SEVERINO TOTH DISCHARGE SUMMARY Page 1 of 1 X Geoffrey Lopez MD X DISCHARGE SUMMARY
--- NOTE | ~2016-11-13 | PA ---
Unit #: [id number] #: [id number] Patient: SEVERINO TOHT [id number] [facility] [address] [place] [address] [id number] I MR#: [id number] NAME: SEVERINO TOTH. ROOM: P176 Age: 46 Sex: M Admission Date: 11/13/2016 : 1970 Date of Assessment: 11/13/2016 Attending Physician: Geoffrey Lopez M.D. Admitting Physician: Geoffrey Lopez M.D. Primary Care Physician: Generic Doctor Not In System PSYCHIATRIC ASSESSMENT IDENTIFYING INFORMATION The patient is a 46-year-old white male well-known to this physician from multiple previous admissions to this facility. He is readmitted after presenting to [facility] reporting recent relapse of alcohol use and suicidal ideation. INFORMANT(S) Patient and chart. RELIABILITY Fair. CHIEF COMPLAINT None given. HISTORY OF PRESENT ILLNESS The patient is a 46-year-old white male well-known to this physician from multiple previous admissions to this facility. He is readmitted after presenting to [facility] reporting positive suicidal ideation. The patient is homeless and has been drinking heavily. His blood alcohol on admission at [facility] was .294. The patient continues to endorse positive suicidal ideation and hopelessness when seen today. For a more complete history of present illness, please refer to previous dictated notes. PAST PSYCHIATRIC HISTORY Reviewed, no changes. FAMILY HISTORY/SOCIAL HISTORY Reviewed, no changes. MEDICAL HISTORY Reviewed, no changes. MEDICATION HISTORY The patient is on several antihypertensive medications including Lopressor, Zestril and Lasix. ALLERGIES None reported. MENTAL STATUS EXAM At this time, reveals the patient to be an obese, disheveled white male Unit #: [id number] #: [id number] Patient: SEVERINO TOTH appearing his stated age. He is in no apparent physical distress at the time of examination. He is awake, alert, oriented in all spheres. His mood is mildly dysphoric. His affect congruent. Speech is generally relevant and coherent. There are no gross deficits in memory or cognition noted. Intelligence is judged to be in the average range based on fund of knowledge. The patient is cooperative throughout the interview. He is currently endorsing positive suicidal ideation. He denies homicidal ideation. He denies any psychotic symptoms. His judgement and insight appear to be intact. ASSETS AND LIABILITIES Patient's assets, motivation for change. Liabilities, lack of resources. DIAGNOSTIC IMPRESSION 1. Alcohol use disorder. 2. Hypertension. PSYCHIATRIC PLAN/TREATMENT GOALS The patient remains hospitalized for safety and stabilization. Routine detoxification protocol for alcohol will be initiated and suicide precautions have been put in place. The patient will participate in appropriate paige and milieu activities. ESTIMATED LENGTH OF STAY Three to four days. He is sternly warned today regarding expectations of courteous treatment of staff and peers and I have informed the patient that if at any point I learn that he has been less than optimally courteous to staff, he will be immediately discharged. Dictated by... Geoffrey Lopez M.D. HAIR/shital TD: 11/13/2016 15:19 JOB #: [id number] PSYCHIATRIC ASSESSMENT Page 1 of 1 X Geoffrey Lopez MD X PSYCHIATRIC ASSESSMENT
--- NOTE | ~2016-11-13 | PN ---
Unit #: [id number] #: [id number] Patient: SEVERINO TOTH [id number] [facility] [address] [place] [address] [id number] I MR#: [id number] NAME: SEVERINO TOTH ROOM: 76 Age: 46 Sex: M Admission Date: 11/13/2016 : 1970 Attending Physician: Geoffrey Lopez M.D. Admitting Physician: Geoffrey Lopez M.D. Primary Care Physician: Generic Doctor Not In System [facility] PROGRESS NOTES DATE 11/14/2016 DISCUSSION The patient is abed resting comfortably today. Staff reports no management issues and no episodes of abusive or otherwise inappropriate behavior. Dictated by... Geoffrey Lopez M.D. CB/shital TD: 11/14/2016 14:08 JOB #: [id number] [facility] PROGRESS NOTES Page 1 of 1 X Geoffrey Lopez MD X PROGRESS NOTE
[2016-11-15 11:22] LABS: BASOPHIL% 0.5 % (0-2.5); EOSINOPHIL# 0.1 X10e3 (0-0.7); EOSINOPHIL% 2.8 % (0.0-7.0); HEMOGLOBIN 13.7 gm/dL (13.0-16.0); LYMPHOCYTE# 1.7 X10e3 (1.0-3.5); LYMPHOCYTE% 33.9 % (17.0-45.0); MEAN CELL VOLUME 88.7 FL (83-96); MEAN CORPUSCULAR HEMOGLOBIN 30.4 PG (28-34); MEAN CORPUSCULAR HGB CONC 34.3 g/dL (30-36); MEAN PLATELET VOLUME 8.1 FL (6.5-11.5); MONOCYTE# 0.5 X10e3 (0-1.0); MONOCYTE% 9.1 % (3.0-12.0); NEUTROPHIL# 2.7 X10e3 (1.5-7.1); NEUTROPHIL% 53.7 % (40-75); PLATELET COUNT 140 X10e3 (140-420); RED CELL DISTRIBUTION WIDTH 13.8 % (11.0-15.5)
[2016-11-15 11:28] LABS: ALBUMIN SERUM 3.8 g/dL (3.5-5.0); BILIRUBIN,TOTAL 0.9 mg/dL (0.2-2.0); CALCIUM SERUM 8.9 mg/dL (8.4-10.2); CREATININE SERUM 0.8 mg/dL (0.6-1.4); GLOM FILT RATE Estimated 107.9 mL/min (>60); PROTEIN TOTAL SERUM 7.1 g/dL (6.0-8.3)
[2016-11-15 11:50] LABS: DIFF IND NO
== END 2016-11-17 07:45 | DRG 897 ==
LOC: P1E 09:57
PROVIDERS: Specialist
PROC: HZ2ZZZZ Detoxification Services for Substance Abuse Treatment (ICD-10-PCS; principal; 2016-11-13)
DX: F10.10 Alcohol abuse, uncomplicated (principal); R45.851 Suicidal ideations; I10 Essential (primary) hypertension
CPT/HCPCS: 80053; 85025; 86592

== ENCOUNTER 2016-11-19 01:00 | Inpatient (IN) | payer OTHER ==
[~2016-11-19] VITALS: Ht 170.2 cm; Wt 102.1 kg
--- NOTE | ~2016-11-19 | PN ---
Unit #: [id number] #: [id number] Patient: SEVERINO TOTH [id number] [facility] [address] [place] [address] [id number] I MR#: [id number] NAME: SEVERINO TOTH. ROOM: 73 Age: 46 Sex: M Admission Date: 11/19/2016 : 1970 Attending Physician: Geoffrey Lopez M.D. Admitting Physician: Geoffrey Lopez M.D. Primary Care Physician: Generic Doctor Not In System [facility] PROGRESS NOTES DATE 11/21/2016 DISCUSSION The patient is more active within the therapeutic milieu and has been agreeable in his interactions with peers and staff. During the stay in the hospital he again states that he [facility] his discharge from the hospital, but this has been his claim at the time of his last discharge from this facility leading this physician to have significant doubts regarding the veracity of this plan. Whatever the case, the patient's detox continues uneventfully, and we will today restart the patient's antihypertensive medications. Dictated by... Alysia Ann TD: 11/21/2016 13:52 JOB #: [id number] [facility] PROGRESS NOTES Page 1 of 1 X Geoffrey Lopez MD X PROGRESS NOTE
--- NOTE | ~2016-11-19 | PN ---
Unit #: [id number] #: [id number] Patient: SEVERINO TOTH [id number] [facility] [address] [place] [address] [id number] I MR#: [id number] NAME: SEVERINO TOTH ROOM: P214 Age: 46 Sex: M Admission Date: 11/19/2016 : 1970 Attending Physician: Geoffrey Lopez M.D. Admitting Physician: Geoffrey Lopez M.D. Primary Care Physician: Generic Doctor Not In System [facility] PROGRESS NOTES DATE 11/22/2016 DISCUSSION The patient is exhibiting little in the way of signs or symptoms of withdrawal and reports improved mood. Should he sustain progress discharge will likely take place tomorrow. Dictated by... Geoffrey Lopez M.D. CB/jeff TD: 11/22/2016 23:00 JOB #: [id number] [facility] PROGRESS NOTES Page 1 of 1 X Geoffrey Lopez MD X PROGRESS NOTE
--- NOTE | ~2016-11-19 | DS ---
Unit #: [id number] #: [id number] Patient: SEVERINO TOTH [id number] [facility] [address] [place] [address] [id number] MR#: [id number] NAME: SEVERINO TOTH. ROOM: [facility] Age: 46 Sex: M Admission Date: 11/19/2016 : 1970 Discharge Date: 11/23/2016 Attending Physician: Geoffrey Lopez M.D. Primary Care Physician: Generic Doctor Not In System DISCHARGE SUMMARY REASON FOR ADMISSION The patient is a 46-year-old white male admitted for alcohol detox. He had also taken an overdose of antihypertensive medication. HOSPITAL COURSE The patient was admitted to the [address] [place] [address] Unit. He required medical clearance after dropping his blood pressure related to his overdose of antihypertensives and was sent out briefly to a local emergency room. He was sent back, and antihypertensives were held for 1 day. By 11/23/2016, the patient had been accepted for treatment at local [facility] and discharge was ordered. FINAL DIAGNOSES 1. Alcohol use disorder. 2. Dysthymic disorder. 3. Hypertension. 4. Status post antihypertensive ingestion without sequelae. DISPOSITION ON DISCHARGE The patient will continue previously prescribed antihypertensive medication the list of which can be obtained from the chart. He will follow through the auspices of community mental health resources. PROGNOSIS Remains guarded. Dictated by... Geoffrey Lopez M.D. CB/yumiko TD: 11/25/2016 08:49 JOB #: [id number] Unit #: [id number] #: [id number] Patient: SEVERINO TOTH DISCHARGE SUMMARY Page 1 of 1 X Geoffrey Lopez MD X DISCHARGE SUMMARY
--- NOTE | ~2016-11-19 | PA ---
Unit #: [id number] #: [id number] Patient: SEVERINO TOTH [id number] [facility] [address] [place] [address] [id number] I MR#: [id number] NAME: SEVERINO TOTH. ROOM: 30 Age: 46 Sex: M Admission Date: 11/19/2016 : 1970 Date of Assessment: 11/20/2016 Attending Physician: Geoffrey Lopez M.D. Admitting Physician: Geoffrey Lopez M.D. Primary Care Physician: Generic Doctor Not In System PSYCHIATRIC ASSESSMENT IDENTIFYING INFORMATION The patient is a 46-year-old white male admitted following an ingestion of antihypertensive medication. CHIEF COMPLAINT "I come in peace." INFORMANT(S) Patient, reliability is fair. HISTORY OF PRESENT ILLNESS The patient is a 46-year-old white male just discharged from this facility on 11/17/2016. He had stated to this physician that he planned to go [facility] upon his discharge from this facility but did not do so and began drinking almost immediately. He had presented to the [facility] Emergency Room the following morning but was denied admission to that facility on the advise of this physician. Later in the day, the patient reports that he was speaking with his who has become a heroin addict. He reports that she accused him of causing her heroin addiction and this caused him to become distraught and take an overdose of antihypertensive medication. The patient did require medical intervention yesterday after his blood pressure dropped considerably but today is exhibiting no signs of sequelae from his ingestion. He is denying suicidal or homicidal ideation and is contrite over the events leading to hospitalization. For more complete history of present illness, please refer to previously dictated notes. PAST PSYCHIATRIC HISTORY Reviewed, no changes. PAST MEDICAL HISTORY Reviewed, no changes. MEDICATIONS Lasix, Zestril, Lopressor. ALLERGIES Penicillin. FAMILY HISTORY Reviewed, no changes. SOCIAL HISTORY Unit #: [id number] #: [id number] Patient: SEVERINO TOTH Reviewed, no changes. MENTAL STATUS EXAM Examination at this time reveals the patient to be an obese somewhat flushed white female appearing stated age. He is in no apparent physical distress at the time of examination. He is awake, alert, and oriented in all spheres. His mood is mildly dysphoric. His affect constricted. Speech is generally well-coherent. There are no gross deficits in memory or cognition noted. Intelligence is judged to be in the average range based on fund of knowledge. The patient is cooperative throughout the interview. He is currently denying suicidal or homicidal ideations or psychotic features. Judgment and insight appear to be intact. ASSETS AND LIABILITIES The patient's assets: Motivation for change. Liabilities: Lack of resources. DIAGNOSTIC IMPRESSION 1. Alcohol use disorder. 2. Adjustment disorder with mixed emotional features. 3. Hypertension. TREATMENT PLAN The patient remains hospitalized for safety and stabilization. We will continue to monitor his blood pressure closely. He should not require any detoxification as he had only been out of this facility for less than 2 days prior to his return to the hospital. ESTIMATED LENGTH OF STAY 3 to 3 days. The followup will take place through the auspices of community mental health resources. Dictated by... Geoffrey Lopez M.D. HAIR/yumiko TD: 11/20/2016 14:43 JOB #: [id number] PSYCHIATRIC ASSESSMENT Page 1 of 1 X Geoffrey Lopez MD X PSYCHIATRIC ASSESSMENT
--- NOTE | ~2016-11-19 | HP ---
Unit #: [id number] #: [id number] Patient: SEVERINO TOTH [id number] [place] [address] [id number] MR#: [id number] NAME: SEVERINO TOTH. ROOM: P130 Age: 46 Sex: M Admission Date: 11/19/2016 : 1970 Attending Physician: Geoffrey Lopez M.D. Admitting Physician: Geoffrey Lopez M.D. Primary Care Physician: Generic Doctor Not In System HISTORY AND PHYSICAL NOTE Severino is a 46 year old admitted to [address] [place] [address] because of his continued abuse of alcohol. He was just discharged from this facility after treatment for the same. The patient was seen and H and P dated 11/14/2016 was reviewed. This is current. No changes. Please see H and P dated 11/14/2016. Dictated by... Rose Wesley P.A.-C. for Alysia Lawson/jeff TD: 11/19/2016 21:28 JOB #: [id number] HISTORY AND PHYSICAL Page 1 of X Rose Wesley HISTORY AND PHYSICAL
== END 2016-11-23 13:11 | DRG 897 ==
LOC: P1S 05:27 → P1E 11-20 15:45 → P2S 11-22 21:55
PROC: HZ2ZZZZ Detoxification Services for Substance Abuse Treatment (ICD-10-PCS; principal; 2016-11-19)
DX: F10.10 Alcohol abuse, uncomplicated (principal); I10 Essential (primary) hypertension; E66.9 Obesity, unspecified; Z88.0 Allergy status to penicillin; F43.20 Adjustment disorder, unspecified

== ENCOUNTER 2016-11-19 09:31 | Emergency (ER) | payer OTHER ==
[~2016-11-19] VITALS: Ht 170.2 cm; Wt 101.2 kg
[2016-11-19 10:34] LABS: BASOPHIL# 0.1 X10e3 (0-0.3); BASOPHIL% 0.8 % (0-2.5); DIFF IND NO; EOSINOPHIL# 0.1 X10e3 (0-0.7); HEMATOCRIT 38.9 % (38.0-50.0); HEMOGLOBIN 13.3 gm/dL (13.0-16.0); LYMPHOCYTE# 2.2 X10e3 (1.0-3.5); LYMPHOCYTE% 26.4 % (17.0-45.0); MEAN CELL VOLUME 89.8 FL (83-96); MEAN CORPUSCULAR HEMOGLOBIN 30.6 PG (28-34); MEAN CORPUSCULAR HGB CONC 34.1 g/dL (30-36); MEAN PLATELET VOLUME 7.8 FL (6.5-11.5); MONOCYTE% 11.7 % (3.0-12.0); NEUTROPHIL# 5.1 X10e3 (1.5-7.1); NEUTROPHIL% 60.1 % (40-75); PLATELET COUNT 176 X10e3 (140-420); RED BLOOD COUNT 4.34 X10e (3.90-5.60); RED CELL DISTRIBUTION WIDTH 14.4 % (11.0-15.5); WHITE BLOOD COUNT 8.5 X10e3 (4.0-10.5)
[2016-11-19 11:00] LABS: ALBUMIN SERUM 4.3 g/dL (3.5-5.0); ALKALINE PHOSPHATASE 91 U/L (32-92); ALT (SGPT) 33 U/L (10-40); AST (SGOT) 31 U/L (10-42); BILIRUBIN, DIRECT 0.1 mg/dL (0.0-0.2); BILIRUBIN,INDIRECT 0.2 mg/dL (0.0-0.9); BILIRUBIN,TOTAL 0.3 mg/dL (0.2-2.0); BLOOD UREA NITROGEN 15 mg/dL (9-23); BUN/CREATININE RATIO 18.75; CALCIUM SERUM 8.7 mg/dL (8.4-10.2); CARBON DIOXIDE 22 mmol/L (22-31); CHLORIDE 106 mmol/L (100-111); CREATININE SERUM 0.8 mg/dL (0.6-1.4); GLOM FILT RATE Estimated 107.9 mL/min (>60); GLUCOSE FASTING 101 mg/dL (70-110); PROTEIN TOTAL SERUM 7.6 g/dL (6.0-8.3); SALICYLATE <4.0 mg/dL; SODIUM 139 mmol/L (135-145)
[2016-11-19 11:03] LABS: ACETAMINOPHEN <10 ug/mL; ALCOHOL BLOOD <5 mg/dL (0)
[2016-11-19 11:16] LABS: URINE SOURCE CLEAN CATCH
[2016-11-19 11:31] LABS: URINE APPEARANCE CLEAR; URINE BILIRUBIN NEG (NEG); URINE BLOOD NEG (NEG); URINE COLOR YELLOW; URINE GLUCOSE NEG (NEG); URINE KETONE NEG (NEG); URINE LEUKOCYTE ESTERASE NEG (NEG); URINE NITRATE NEG (NEG); URINE PROTEIN NEG (NEG); URINE SPECIFIC GRAVITY 1.017 (1.003-1.035)
[2016-11-19 11:35] LABS: CULTURE INDICATED? NO
[2016-11-19 11:44] LABS: AMPHETAMINE NEG (NEG); BARBITURATES NEG (NEG); BENZODIAZEPINES NEG (NEG); COCAINE NEG (NEG); MARIJUANA NEG (NEG); OPIATES NEG (NEG); TRICYCLIC ANTIDEPRESSANTS NEG (NEG); U METHADONE NEG (NEG)
== END 2016-11-19 14:14 | disposition home or self-care (01) ==
LOC: CED 09:31
PROVIDERS: Emergency Medicine
DX: I11.0 Hypertensive heart disease with heart failure (principal); I50.9 Heart failure, unspecified; Z88.0 Allergy status to penicillin
CPT/HCPCS: 36415; 80048; 80076; 80307; 81003; 85025; 99285; G0480

== ENCOUNTER 2016-11-26 08:04 | Inpatient (IN) | payer OTHER ==
[~2016-11-26] VITALS: Ht 175.3 cm; Wt 77.1 kg
--- NOTE | ~2016-11-26 | PN ---
Unit #: [id number] #: [id number] Patient: SEVERINO TOTH [id number] [facility] [address] [place] [address] [id number] I MR#: [id number] NAME: SEVERINO TOTH. ROOM: P121 Age: 46 Sex: M Admission Date: 11/26/2016 : 1970 Attending Physician: Geoffrey Lopez M.D. Admitting Physician: Geoffrey Lopez M.D. Primary Care Physician: Primary Care Physician Estela MORTENSEN PROGRESS NOTES DATE 11/30/2016 DISCUSSION The patient reports that he has made arrangements to go to "[facility]" but with the transportation arrangements have been difficult. Otherwise, he exhibits little in the way of signs or symptoms of withdrawal and denies suicidal ideation. We expect a.m. discharge. Dictated by... Geoffrey Lopez M.D. CB/jeff TD: 11/30/2016 22:54 JOB #: [id number] [facility] PROGRESS NOTES Page 1 of 1 X Geoffrey Lopez MD PROGRESS NOTE
--- NOTE | ~2016-11-26 | PN ---
Unit #: [id number] #: [id number] Patient: SEVERINO TOTH [id number] [facility] [address] [place] [address] [id number] MR#: [id number] NAME: SEVERINO TOTH ROOM: P121 Age: 46 Sex: M Admission Date: 11/26/2016 : 1970 Attending Physician: Geoffrey Lopez M.D. Admitting Physician: Geoffrey Lopez M.D. Primary Care Physician: Primary Care Physician Estela MORTENSEN PROGRESS NOTES DATE 11/29/2016 DISCUSSION The patient offers no new complaints today. His detox continues uneventfully. He continues to express interest in residential chemical dependence treatment. I will attempt to transfer the patient to one of our CD units. Dictated by... Geoffrey Lopez M.D. CB/jeff TD: 11/30/2016 01:10 JOB #: [id number] [facility] PROGRESS NOTES Page 1 of 1 X Geoffrey Lopez MD X PROGRESS NOTE
--- NOTE | ~2016-11-26 | PA ---
Unit #: [id number] #: [id number] Patient: SEVERINO TOTH [id number] [place] [address] [id number] MR#: [id number] NAME: SEVERINO TOTH. ROOM: P121 Age: 46 Sex: M Admission Date: 11/26/2016 : 1970 Date of Assessment: 11/27/2016 Attending Physician: Geoffrey Lopez M.D. Admitting Physician: Geoffrey Lopez M.D. Primary Care Physician: Primary Care Physician No PSYCHIATRIC ASSESSMENT IDENTIFYING INFORMATION The patient is a 46-year-old white male admitted after he had presented to [facility] intoxicated, threatening to overdose on his antihypertensive medication. CHIEF COMPLAINT None given. INFORMANT(S) Chart and patient, reliability good. HISTORY OF PRESENT ILLNESS The patient is a 46-year-old white male well known to this physician. He was just discharged from this facility on 11/23/2016 but has returned voicing positive suicidal ideation with a plan to overdose on his antihypertensive medication. Notably, the patient had made similar threats in the emergency room at [facility] recently upon having been discharged to that facility. The patient did actually go through with an ingestion of antihypertensive medications, but he states that this was not related to his release from [facility]. The patient has repeatedly told this physician that he would go for residential chemical dependence treatment but has repeatedly reneged on this promise and has gone drinking almost immediately on this occasion. The patient states that he plans to go to the [facility]" upon his discharge from the hospital. PAST PSYCHIATRIC HISTORY Reviewed, no changes. PAST MEDICAL HISTORY Reviewed, no changes. MEDICATIONS Zestril, Lasix, Lopressor. ALLERGIES Penicillin. FAMILY HISTORY Reviewed, no changes. SOCIAL HISTORY Reviewed, no changes. Unit #: [id number] #: [id number] Patient: SEVERINO TOTH MENTAL STATUS EXAMINATION Examination at this time reveals the patient to be an obese white male appearing stated age. He is in no apparent physical distress at the time of examination. He is awake, alert, and oriented in all spheres. His mood is mildly dysphoric, his affect constricted. Speech is generally well-coherent. There are no gross deficits in memory or cognition noted. Intelligence is judged to be in the average range based on fund of knowledge. The patient is cooperative throughout the interview. He currently denies suicidal or homicidal ideation of psychotic features. Judgment and insight appear to be intact. ASSETS AND LIABILITIES The patient's assets: Motivation for change. Liabilities: Ongoing substance use. DIAGNOSTIC IMPRESSION 1. Alcohol use disorder. 2. Dysthymic disorder. 3. Hypertension. TREATMENT PLAN The patient remains hospitalized for safety and stabilization. I will transfer the patient to the [facility] Unit, and apparently a referral has been made for treatment at [facility]. ESTIMATED LENGTH OF STAY 5 to 7 days. Dictated by... Geoffrey Lopez M.D. William TD: 11/27/2016 14:41 JOB #: [id number] PSYCHIATRIC ASSESSMENT Page 1 of 1 X Geoffrey Lopez MD X PSYCHIATRIC ASSESSMENT
--- NOTE | ~2016-11-26 | PN ---
Unit #: [id number] #: [id number] Patient: SEVERINO TOTH [id number] [facility] [address] [place] [address] [id number] MR#: [id number] NAME: SEVERINO TOTH ROOM: P121 Age: 46 Sex: M Admission Date: 11/26/2016 : 1970 Attending Physician: Geoffrey Lopez M.D. Admitting Physician: Geoffrey Lopez M.D. Primary Care Physician: Primary Care Physician Estela MORTENSEN PROGRESS NOTES DATE 11/28/2016 DISCUSSION The patient offers no new complaints today. His detox continues uneventfully, and he is denying suicidal ideation. Dictated by... Geoffrey Lopez M.D. CB/yumiko TD: 11/28/2016 13:18 JOB #: [id number] [facility] PROGRESS NOTES Page 1 of 1 X Geoffrey Lopez MD X PROGRESS NOTE
--- NOTE | ~2016-11-26 | DS ---
Unit #: [id number] #: [id number] Patient: SEVERINO TOTH [id number] [facility] [address] [place] [address] [id number] MR#: [id number] NAME: SEVERINO TOTH. ROOM: P121 Age: 46 Sex: M Admission Date: 11/26/2016 : 1970 Discharge Date: 12/02/2016 Attending Physician: Geoffrey Lopez M.D. Primary Care Physician: Primary Care Physician No DISCHARGE SUMMARY REASON FOR ADMISSION The patient is a 46-year-old white male, admitted with recurrence of alcohol use and suicidal ideation. HOSPITAL COURSE The patient is admitted to the [address] [place] [address] and placed on routine detoxification protocol for alcohol. He was restarted on previously prescribed medications. It was the patient's hope to go to [facility]" when he was discharged from this facility but he learned on 12/01 that he would not be able to return to one of those facilities as he had just been discharged less than thirty days ago. He was, at that time, agreeable with the plan for followup through the auspices of [facility] and discharge was ordered to take place on 12/02/2016. DISCHARGE DIAGNOSES Mcintyre I Alcohol use disorder. Dysthymic disorder. Mcintyre II Mcintyre III Hypertension. Mcintyre IV Mcintyre V DISPOSITION ON DISCHARGE The patient is discharged on the following medications: 1. Lopressor 25 mg daily for hypertension 2. Zestril 10 mg once daily for hypertension 3. Lasix 40 mg daily for hypertension PROGNOSIS The patient's prognosis remains somewhat guarded. DIET AND ACTIVITY No dietary or physical restrictions were placed on the patient at the time of discharge. Follow up will take place through the auspices of [facility]. Unit #: [id number] #: [id number] Patient: SEVERINO TOTH Dictated by... Geoffrey Lopez M.D. CB/kings TD: 12/02/2016 12:25 JOB #: [id number] DISCHARGE SUMMARY Page 1 of 1 X Geoffrey Lopez MD DISCHARGE SUMMARY
--- NOTE | ~2016-11-26 | HP ---
Unit #: [id number] #: [id number] Patient: SEVERINO TOTH [id number] [place] [address] [id number] MR#: [id number] NAME: SEVERINO TOTH. ROOM: P121 Age: 46 Sex: M Admission Date: 11/26/2016 : 1970 Attending Physician: Geoffrey Lopez M.D. Admitting Physician: Geoffrey Lopez M.D. Primary Care Physician: Primary Care Physician No HISTORY AND PHYSICAL Severino is a 46 year old admitted to [address] [place] [address] with depression and after an alleged overdose of his blood pressure medications. He has had numerous admissions to this facility and was just discharged from this facility. Patient was seen and H and P dated 11/14/16 was reviewed. This is current. No changes. Please see H and P dated 11/14/16. Dictated by... Rose Wesley P.A.-C. for Alysia Lawson/shital TD: 11/26/2016 20:06 JOB #: [id number] HISTORY AND PHYSICAL Page 1 of 1 X Rose Wesley HISTORY AND PHYSICAL
== END 2016-12-02 09:15 | disposition home or self-care (01) | DRG 897 ==
LOC: P1S 15:27
PROC: HZ2ZZZZ Detoxification Services for Substance Abuse Treatment (ICD-10-PCS; principal; 2016-11-26)
DX: F10.10 Alcohol abuse, uncomplicated (principal); R45.851 Suicidal ideations; I10 Essential (primary) hypertension; F34.1 Dysthymic disorder; Z88.0 Allergy status to penicillin

== ENCOUNTER 2016-12-04 15:00 | Inpatient (IN) | payer OTHER ==
[~2016-12-04] VITALS: Ht 170.2 cm; Wt 102.1 kg
--- NOTE | ~2016-12-04 | HP ---
Unit #: [id number] #: [id number] Patient: SEVERINO TOTH [id number] [facility] [address] [place] [address] [id number] I MR#: [id number] NAME: SEVERINO TOTH ROOM: P209 Age: 46 Sex: M Admission Date: 12/04/2016 : 1970 Attending Physician: Geoffrey Lopez M.D. Admitting Physician: Geoffrey Lopez M.D. Primary Care Physician: Generic Doctor Not In System HISTORY AND PHYSICAL Severino is a 46-year-old male who was admitted on 12/04/2016. I was present for H and P; however, he had already been discharged in less than 24 hours. Dictated by... Donna Du/shital TD: 12/05/2016 15:22 JOB #: [id number] HISTORY AND PHYSICAL Page 1 of 1 X MARK PERSON APRN HISTORY AND PHYSICAL
--- NOTE | ~2016-12-04 | DS ---
Unit #: [id number] #: [id number] Patient: SEVERINO TOTH [id number] [facility] [address] [place] [address] [id number] I MR#: [id number] NAME: SEVERINO TOTH. ROOM: P209 Age: 46 Sex: M Admission Date: 12/04/2016 : 1970 Discharge Date: 12/05/2016 Attending Physician: Geoffrey Lopez M.D. Primary Care Physician: Generic Doctor Not In System DISCHARGE SUMMARY REASON FOR ADMISSION The patient is a 46-year-old white male, admitted to the [address] [place] [address] after he had ingested antihypertensive medication in the emergency room at [facility]. HOSPITAL COURSE The patient was admitted to the [address] [place] [address] and placed on suicide precautions, room lockout was ordered when seen by this physician on 12/05/2016, the patient was gently but firmly confronted related to his recent abuse of the hospital system as well as the clearly manipulative nature of his act of taking his overdose in the emergency room where rescue was certain. The patient stated a wish to visit his son in [place] and requested discharge and it was so ordered. DISCHARGE DIAGNOSES Warren I Alcohol use disorder. Malingering. Warren II Warren III Hypertension. Warren IV Warren V DISPOSITION ON DISCHARGE The patient will continue previously prescribed antihypertensive medications including Lopressor 25 mg daily for hypertension, Zestril 10 mg daily for hypertension, Lasix 40 mg daily for hypertension. PROGNOSIS The patient's prognosis remains guarded. And once again, this physician fully expects to see the patient once again at this facility or at alike facility within 12 to 36 hours given his recent history. DIET AND ACTIVITY No dietary or physical restrictions were placed on the patient at the time of discharge. Follow up will take place through the auspices of community mental health resources. Unit #: [id number] #: [id number] Patient: SEVERINO TOTH Dictated by... Geoffrey Lopez M.D. CB/kings TD: 12/07/2016 08:47 JOB #: [id number] DISCHARGE SUMMARY Page 1 of 1 X Geoffrey Lopez MD X DISCHARGE SUMMARY
--- NOTE | ~2016-12-04 | PA ---
Unit #: [id number] #: [id number] Patient: SEVERINO TOTH [id number] [facility] [address] [place] [address] [id number] MR#: [id number] NAME: SEVERINO TOTH. ROOM: P209 Age: 46 Sex: M Admission Date: 12/04/2016 : 1970 Date of Assessment: 12/05/2016 Attending Physician: Geoffrey Lopez M.D. Admitting Physician: Geoffrey Lopez M.D. Primary Care Physician: Generic Doctor Not In System PSYCHIATRIC ASSESSMENT IDENTIFYING INFORMATION The patient is a 46-year-old white male readmitted yet again to the [address] [place] [address] Unit after presenting [facility] complaining to be suicidal. While in the hospital waiting area the patient had taken another overdose of antihypertensive medications necessitating an overnight stay at [facility]. CHIEF COMPLAINT None given. INFORMANT(S) Patient and chart, reliability poor. HISTORY OF PRESENT ILLNESS The patient is a 46-year-old white male well known to this physician from seemingly countless previous admissions to this facility the last of which ended only on 12/02/2016. The patient began drinking almost immediately upon his discharge from the hospital, having misled this physician regarding his [facility] of [facility] The patient was admitted in transfer from [facility] where he was admitted overnight following yet another ingestion of antihypertensive medication. When seen today, the patient reports contrition over the events leading to hospitalization and denies suicidal ideation. He states that he wishes to "go up north and visit his son." This is apparently referring to his son who is in [place]. He is denying suicidal ideation at this time and exhibits no signs or symptoms of withdrawal, and no sequelae from his overdose. For more complete history of present illness, please refer to multiple previously dictated notes. PAST PSYCHIATRIC HISTORY Reviewed, no changes. PAST MEDICAL HISTORY Reviewed, no changes. MEDICATION(S) Lopressor, Zestril, and Lasix. ALLERGIES Penicillin. FAMILY HISTORY Reviewed, no changes. Unit #: [id number] #: [id number] Patient: SEVERINO TOTH SOCIAL HISTORY Reviewed, no changes. MENTAL STATUS EXAMINATION Examination at this time reveals the patient to be an obese disheveled white male appearing stated age. She is dressed in hospital garb. He is awake, alert, and oriented in all spheres. His mood is mildly dysphoric, his affect congruent. Speech is generally well coherent. There are no gross deficits in memory or cognition noted. Intelligence is judged to be in the average range based on fund of knowledge. The patient is cooperative throughout the interview. He is currently reporting no suicidal or homicidal ideation or psychotic features. Judgment and insight appear to be reasonably intact. ASSETS AND LIABILITIES The patient's assets are to be assessed. 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 DIAGNOSTIC IMPRESSION 1. Alcohol use disorder. 2. Malingering. 3. Hypertension. TREATMENT PLAN The patient will be discharged from the hospital as per his request today stating that he hopes to visit his son in [place] in the near future. It is the feeling of this physician that the patient will probably leave the hospital and relapse on alcohol almost immediately, and should probably be returning to this facility within 12 to 36 hours. Dictated by... Geoffrey Lopez M.D. HAIR/yumiko TD: 12/05/2016 12:01 JOB #: [id number] PSYCHIATRIC ASSESSMENT Page 1 of 1 X Geoffrey Lopez MD X PSYCHIATRIC ASSESSMENT
== END 2016-12-05 13:00 | disposition home or self-care (01) | DRG 897 ==
LOC: P2S 22:22
DX: F10.20 Alcohol dependence, uncomplicated (principal); I10 Essential (primary) hypertension; Z76.5 Malingerer [conscious simulation]

== ENCOUNTER 2016-12-06 01:03 | Emergency (ER) | payer OTHER ==
[~2016-12-06] VITALS: Ht 170.2 cm; Wt 102.1 kg
--- NOTE | ~2016-12-06 | CR21 ---
[facility] A Service of [facility] & [facility] RADIOLOGY TEXT RESULTS PATIENT: SEVERINO TOTH LOCATION: [facility] : 72 UNIT #: [id number] AGE: [address]: Eliud Schrader MD SEX: M ORDER DR: [id number] [facility] [address] [place], [place] [address] [id number] E MR#: [id number] Acc #: [id number] NAME: SEVERINO TOTH : 1970 SEX: M STUDY DATE/TIME: 12/06/2016 02:10 UNIT: [facility] ROOM: STUDY DESCRIPTION: CR Ankle Min 3 Views Rt Attending Physician: Eliud Schrader M.D. Ordering Physician: Eliud Schrader M.D. Primary Care Physician: Primary Care Physician No MEDICAL IMAGING REPORT This report is preliminary unless electronic signature is present EXAM Right ankle, 12/06 at 02:10 INDICATION Ankle pain after walking around today. No trauma. FINDINGS 4 views of the ankle were obtained. No fractures are identified. There is degenerative spurring at the talonavicular joint with a talar beak. The mortise is intact. There is some calcification in the interosseous ligament which may be related to old trauma. IMPRESSION No fracture or malalignment. 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 Dictated by... Dayo Blanco Jr., M.D. THIS IS AN ELECTRONICALLY VERIFIED REPORT Dayo Blanco Jr., M.D. at 12/07/2016 9:12 PM REX/alba TD: 12/07/2016 09:11 JOB #: [id number] MEDICAL IMAGING REPORT Page 1 of 1 COPY
--- NOTE | ~2016-12-06 | CR72 ---
[facility] A Service of [facility] & [facility] RADIOLOGY TEXT RESULTS PATIENT: SEVERINO TOTH LOCATION: [facility] : 72 UNIT #: [id number] AGE: [address]: Eliud Schrader MD SEX: M ORDER DR: [id number] [facility] [address] [facility]. [place], [place] [address] [id number] E MR#: [id number] Acc #: [id number] NAME: SEVERINO TOTH : 1970 SEX: M STUDY DATE/TIME: 12/06/2016 02:13 UNIT: [facility] ROOM: STUDY DESCRIPTION: CR Chest Single View Portable Attending Physician: Eliud Schrader M.D. Ordering Physician: Eliud Schrader M.D. Primary Care Physician: Primary Care Physician No MEDICAL IMAGING REPORT This report is preliminary unless electronic signature is present EXAM Portable chest 12/06 at 02:13 INDICATION Chest pain after walking around today. FINDINGS AP portable chest compared with 12/03/2016. Cardiomegaly stable. Lungs clear. No pneumothorax. IMPRESSION Stable cardiomegaly. No active disease. No interval change. Dictated by... Dayo Blanco Jr., M.D. THIS IS AN ELECTRONICALLY VERIFIED REPORT Dayo Blanco Jr., M.D. at 12/07/2016 9:12 PM REX/star TD: 12/07/2016 09:11 JOB #: [id number] MEDICAL IMAGING REPORT Page 1 of 1 COPY
--- NOTE | ~2016-12-06 | EKG ---
PATIENT: SEVERINO TOTH UNIT #: [id number] Ventricular Rate: 115 BPM Atrial Rate: 115 BPM P-R Interval: 148 ms QRS Duration: 84 ms Q-T Interval: 326 ms QTC Calculation(Bezet): 450 ms P Camden: 49 degrees Calculated R Camden: 13 degrees Calculated T Camden: 40 degrees Diagnosis Line: Sinus tachycardia Early repolarization Diagnosis Line: Otherwise normal ECG Diagnosis Line: No previous ECGs available Diagnosis Line: Confirmed by MARIA LAWS MD ([id number]) on 12/06/2016 Diagnosis Line: 11:06:58 PM INTERPRETING MD: VETO NAIR
[2016-12-06 02:18] LABS: BASOPHIL% 0.5 % (0-2.5); EOSINOPHIL# 0.1 X10e3 (0-0.7); EOSINOPHIL% 0.8 % (0.0-7.0); HEMATOCRIT 42.2 % (38.0-50.0); HEMOGLOBIN 14.1 gm/dL (13.0-16.0); LYMPHOCYTE# 3.3 X10e3 (1.0-3.5); LYMPHOCYTE% 39.9 % (17.0-45.0); MEAN CELL VOLUME 90.2 FL (83-96); MEAN CORPUSCULAR HEMOGLOBIN 30.1 PG (28-34); MEAN CORPUSCULAR HGB CONC 33.4 g/dL (30-36); MEAN PLATELET VOLUME 7.7 FL (6.5-11.5); MONOCYTE# 0.9 X10e3 (0-1.0); MONOCYTE% 10.6 % (3.0-12.0); NEUTROPHIL% 48.2 % (40-75); PLATELET COUNT 248 X10e3 (140-420); RED BLOOD COUNT 4.68 X10e (3.90-5.60); RED CELL DISTRIBUTION WIDTH 14.6 % (11.0-15.5); WHITE BLOOD COUNT 8.3 X10e3 (4.0-10.5)
[2016-12-06 02:20] LABS: DIFF IND NO
[2016-12-06 02:30] LABS: POC - CKMB 1.3 ng/mL (0.0-7.9); POC - TROPONIN <0.05 ng/mL (<=0.05)
[2016-12-06 02:45] LABS: ALBUMIN SERUM 4.7 g/dL (3.5-5.0); BILIRUBIN, DIRECT 0.1 mg/dL (0.0-0.2); BILIRUBIN,INDIRECT 0.5 mg/dL (0.0-0.9); BILIRUBIN,TOTAL 0.6 mg/dL (0.2-2.0); BUN/CREATININE RATIO 18.75; CALCIUM SERUM 9.1 mg/dL (8.4-10.2); CREATININE SERUM 0.8 mg/dL (0.6-1.4); GLOM FILT RATE Estimated 107.9 mL/min (>60); POTASSIUM 3.7 mmol/L (3.5-5.1); PROTEIN TOTAL SERUM 8.4 g/dL (6.0-8.3)
[2016-12-06 04:17] LABS: POC - CKMB 1.1 ng/mL (0.0-7.9); POC - TROPONIN <0.05 ng/mL (<=0.05)
== END 2016-12-06 05:44 | disposition home or self-care (01) ==
LOC: CED 01:03
PROVIDERS: Emergency Medicine
DX: R07.9 Chest pain, unspecified (principal); F10.10 Alcohol abuse, uncomplicated; I11.0 Hypertensive heart disease with heart failure; I50.9 Heart failure, unspecified; Z88.0 Allergy status to penicillin; Y90.8 Blood alcohol level of 240 mg/100 ml or more
CPT/HCPCS: 36415; 71010; 73610; 80048; 80076; 82553; 83690; 84484; 85025; 93005; 99285; G0480

== ENCOUNTER 2016-12-06 05:00 | Inpatient (IN) | payer OTHER ==
[~2016-12-06] VITALS: Ht 170.2 cm; Wt 99.8 kg
--- NOTE | ~2016-12-06 | HP ---
Unit #: [id number] #: [id number] Patient: SEVERINO TOTH [id number] [place] [address] [id number] I MR#: [id number] NAME: SEVERINO TOTH ROOM: P254 Age: 46 Sex: M Admission Date: 12/07/2016 : 1970 Attending Physician: Geoffrey Lopez M.D. Admitting Physician: Geoffrey Lopez M.D. Primary Care Physician: Primary Care Physician No HISTORY AND PHYSICAL HISTORY OF PRESENT ILLNESS Severino is a 46 year old who was admitted and discharged within the first 24 hours. He was not seen for an H & P. Dictated by... Rose Wesley P.A.-C. for Alysia Lawson/jeff TD: 12/08/2016 00:40 JOB #: [id number] HISTORY AND PHYSICAL Page 1 of 1 X Rose Wesley HISTORY AND PHYSICAL
--- NOTE | ~2016-12-06 | DS ---
Unit #: [id number] #: [id number] Patient: SEVERINO TOTH [id number] [facility] [address] [place] [address] [id number] I MR#: [id number] NAME: SEVERINO TOTH. ROOM: P254 Age: 46 Sex: M Admission Date: 12/07/2016 : 1970 Discharge Date: 12/07/2016 Attending Physician: Geoffrey Lopez M.D. Primary Care Physician: Primary Care Physician No DISCHARGE SUMMARY REASON FOR ADMISSION The patient is a 46-year-old white male admitted after presenting to this facility claiming to be suicidal. HOSPITAL COURSE The patient was admitted for a very brief period of time. Basically, long enough to be told by this physician that he was being discharged from the hospital though details of the patient's admission and discharge are detailed in the history and physical recently dictated by this physician. Discharge was ordered as of 12/07/2016. FINAL DIAGNOSES 1. Alcohol use disorder. 2. Hypertension. 3. Malingering. DISCHARGE MEDICATIONS It will recommended the patient continue his previously prescribed home medications including Lasix, Zestril and Norvasc. PROGNOSIS Considered fair. DIET AND ACTIVITY No dietary or physical restrictions were placed on the patient at time of discharge. Dictated by... Geoffrey Lopez M.D. CB/shital TD: 12/10/2016 15:05 JOB #: [id number] Unit #: [id number] #: [id number] Patient: SEVERINO TOTH DISCHARGE SUMMARY Page 1 of 1 X Geoffrey Lopez MD X DISCHARGE SUMMARY
--- NOTE | ~2016-12-06 | PA ---
Unit #: [id number] #: [id number] Patient: SEVERINO TOTH [id number] [facility] [address] [place] [address] [id number] I MR#: [id number] NAME: SEVERINO TOTH. ROOM: P254 Age: 46 Sex: M Admission Date: 12/07/2016 : 1970 Date of Assessment: 12/07/2016 Attending Physician: Geoffrey Lopez M.D. Admitting Physician: Geoffrey Lopez M.D. Primary Care Physician: Primary Care Physician No PSYCHIATRIC ASSESSMENT IDENTIFYING INFORMATION The patient is a 46-year-old white male admitted to [address] [place] [address] after presenting to this facility claiming to be suicidal. CHIEF COMPLAINT None given. INFORMANT(S) Patient and chart, reliability is poor. HISTORY OF PRESENT ILLNESS The patient is a 46-year-old white male readmitted after presenting to this facility claiming to be suicidal. He had just been discharged from this facility one day previously stating "I will to go and visit his son in [place]. Other previous stories have included his [facility] to [facility], [facility], and [facility] but on each occasion of discharge the patient has gone out and began using alcohol almost immediately only to return to the emergency room within 18 to 24 hours claiming to be suicidal. When seen today the patient had reported a wish to "jump off the bridge". He exhibits no signs or symptoms of alcohol withdrawal during today's interview. For more complete history of present illness please refer to previous dictated notes. PAST PSYCHIATRIC HISTORY Reviewed, no changes. PAST MEDICAL HISTORY Reviewed, no changes. MEDICATIONS Lasix, Zestril, Norvasc. ALLERGIES None. FAMILY HISTORY Reviewed, no changes. SOCIAL HISTORY Reviewed, no changes. MENTAL STATUS EXAM Unit #: [id number] #: [id number] Patient: SEVERINO TOTH Examination at this time reveals the patient to be an obese somewhat flushed white male appearing stated age. He is dressed in hospital garb. He is awake, alert, and oriented in all spheres. His mood is euthymic. His affect congruent. Speech is generally well-coherent. There are no gross deficits in memory or cognition noted. Intelligence is judged to be in the average range based on fund of knowledge. The patient is generally cooperative during interview. He is currently denying suicidal or homicidal ideations or psychotic features. Judgment and insight appear to be at baseline. ASSETS AND LIABILITIES ASSETS: To be assessed. LIABILITIES: Malingering. DIAGNOSTIC IMPRESSION 1. Alcohol use disorder. 2. Malingering. 3. Hypertension. TREATMENT PLAN The patient will be discharged immediately. A thorough evaluation of the patient's risk of suicide indicates that the patient has been consistently claiming to be suicidal in order to gain admittance to the hospital. The fact that the patient has recently taken a couple of overdoses only is evidence of his determination to rehospitalization given the fact that he has assured that a rescue could take place on both occasions. The patient is clearly not benefiting from inpatient psychiatric care and discharge shall be ordered. Dictated by... Geoffrey Lopez M.D. HAIR/jeff TD: 12/07/2016 20:50 JOB #: [id number] PSYCHIATRIC ASSESSMENT Page 1 of 1 X Geoffrey Lopez MD X PSYCHIATRIC ASSESSMENT
== END 2016-12-07 14:00 | disposition home or self-care (01) | DRG 897 ==
LOC: POF 12-07 10:20 → P2L 12-07 11:14
DX: F10.10 Alcohol abuse, uncomplicated (principal); R45.851 Suicidal ideations; I50.9 Heart failure, unspecified; I10 Essential (primary) hypertension; Z76.5 Malingerer [conscious simulation]; Y90.8 Blood alcohol level of 240 mg/100 ml or more; R07.9 Chest pain, unspecified; Z88.0 Allergy status to penicillin; Z87.891 Personal history of nicotine dependence; Z79.899 Other long term (current) drug therapy
CPT/HCPCS: 36415; 71010; 73610; 80048; 80076; 82553; 83690; 84484; 85025; 93005; 99285; G0480

== ENCOUNTER 2016-12-16 | Inpatient (IN) | payer OTHER ==
[~2016-12-16] VITALS: Ht 170.2 cm; Wt 105.2 kg
--- NOTE | ~2016-12-16 | DS ---
Unit #: [id number] #: [id number] Patient: SEVERINO TOTH [id number] [facility] [address] [place] [address] [id number] I MR#: [id number] NAME: SEVERINO TOTH. ROOM: [facility] Age: 46 Sex: M Admission Date: 12/16/2016 : 1970 Discharge Date: 12/16/2016 Attending Physician: Geoffrey Lopez M.D. Primary Care Physician: Generic Doctor Not In System DISCHARGE SUMMARY REASON FOR ADMISSION The patient is a 46-year-old white male, admitted after he had presented to [facility], [facility], intoxicated and claiming to be suicidal. HOSPITAL COURSE The patient was admitted to the [facility] unit and placed on suicide precautions. Home medications were continued. The patient exhibited no signs or symptoms of withdrawal and denied suicidal ideation when evaluated by this physician after his brief stay on the unit and discharge was deemed warranted given the patient's history of malingering and hospital dependence. FINAL DIAGNOSES Alcohol use disorder, hypertension, malingering. DISPOSITION ON DISCHARGE The patient is discharged on no psychotropic medications. He is instructed to continue treatment with Lopressor 25 mg daily for hypertension, Zestril 10 mg once daily for hypertension, and Lasix 40 mg once daily for hypertension. DISCHARGE INSTRUCTIONS No dietary or physical restrictions were placed on the patient at the time of discharge. FOLLOWUP Followup will take place through the auspices of community mental health resources. Dictated by... Geoffrey Lopez M.D. CB/simil TD: 12/16/2016 23:16 JOB #: [id number] Unit #: [id number] #: [id number] Patient: SEVERINO TOTH DISCHARGE SUMMARY Page 1 of 1 X Geoffrey Lopez MD X DISCHARGE SUMMARY
--- NOTE | ~2016-12-16 | HP ---
Unit #: [id number] #: [id number] Patient: SEVERINO TOTH [id number] [place] [address] [id number] MR#: [id number] NAME: SEVERINO TOTH ROOM: P171 Age: 46 Sex: M Admission Date: 12/16/2016 : 1970 Attending Physician: eGoffrey Lopez M.D. Admitting Physician: Geoffrey Lopez M.D. Primary Care Physician: Generic Doctor Not In System HISTORY AND PHYSICAL HISTORY OF PRESENT ILLNESS Severino is a 46 year old, who was admitted and discharged within the first twenty-four hours. He was not seen for a history and physical. Dictated by... Rose Wesley P.A.-C. for Alysia Lawson/kings TD: 12/17/2016 05:33 JOB #: [id number] HISTORY AND PHYSICAL Page 1 of 1 X Rose Wesley HISTORY AND PHYSICAL
--- NOTE | ~2016-12-16 | PA ---
Unit #: [id number] #: [id number] Patient: SEVERION TOTH [id number] [facility] [address] [place] [address] [id number] MR#: [id number] NAME: SEVERINO TOTH. ROOM: [facility] Age: 46 Sex: M Admission Date: 12/16/2016 : 1970 Date of Assessment: 12/16/2016 Attending Physician: Geoffrey Lopez M.D. Admitting Physician: Geoffrey Lopez M.D. Primary Care Physician: Generic Doctor Not In System PSYCHIATRIC ASSESSMENT IDENTIFYING INFORMATION The patient is a 46-year-old homeless white male with a history alcohol dependence. He has history of multiple previous admissions to this facility and was last admitted here on 12/07/2016. The patient has gone to [facility] claiming to be suicidal. His blood alcohol on admission was 1.49. When see today the patient is denying suicidal and exhibits no signs or symptoms of withdrawal, For more complete history of present illness please refer to previous dictated notes. PAST PSYCHIATRIC ILLNESS. Reviewed no changes. PAST MEDICAL HISTORY Reviewed no changes. MEDICATIONS 1. Lopressor 2. Zestril 3. Lasix 4. Allergies 5. Penicillin. HISTORY OF PRESENT ILLNESS Reviewed no changes. MEDICATION(S) Reviewed no changes. MENTAL STATUS EXAMINATION At this time feels the patient to be an obese white male appearing his states age. He has no apparent physical distress at the time of examination. He is awake, alert, and oriented in all spheres. His mood is mildly dysphoric, his affect congruent. Speech is generally well coherent. There are no gross deficits in memory or cognition noted. Intelligence is judged to be in the average range based on fund of knowledge. The patient is cooperative throughout the interview. He is currently denying suicidal or homicidal ideation or psychotic features. Judgment and insight appear to be reasonably intact. ASSETS AND LIABILITIES ASSETS: The patient's assets are to be assessed. LIABILITIES: lack of resources. Unit #: [id number] #: [id number] Patient: SEVERINO TOTH DIAGNOSTIC IMPRESSION 1. Alcohol use disorder. 2. Hypertension. 3. Malingering. HOSPTIAL COURSE The patient is exhibiting no sign or symptoms of withdrawal and is denying suicidal ideation accordingly s will be ordered. Dictated by... Alysia Ann TD: 12/17/2016 03:23 JOB #: [id number] PSYCHIATRIC ASSESSMENT Page 1 of 1 X Geoffrey Lopez MD PSYCHIATRIC ASSESSMENT
== END 2016-12-16 16:05 | DRG 897 ==
LOC: P1E 08:48
DX: F10.20 Alcohol dependence, uncomplicated (principal); I10 Essential (primary) hypertension; Z76.5 Malingerer [conscious simulation]